=== PATIENT | male | born 1935 | race Caucasian/White ===

== ENCOUNTER 2017-01-02 16:12 | Inpatient (IN) ==
[2017-01-02] MEDS ORDERED: PANTOPRAZOLE 40 MG VIAL IV STA (16:50)
[2017-01-02] MEDS ORDERED: ONDANSETRON 4 MG/2 ML VIAL IV STA (16:50)
[2017-01-02] MEDS ORDERED: SODIUM CHLORIDE 0.9% 500 ML IV STA (16:50)
[2017-01-02 16:57] LABS: Basophils # 0.1 10*3/uL (0.0-0.2); Basophils % 0.4 % (0.0-0.8); Eosinophils # 0.4 10*3/uL (0.0-0.87); Hematocrit 23.8 VOL% (42.0-52.0); Hemoglobin 7.6 GM/DL (14.0-18.0); Immature Granulocytes % 0.9 %; Immature Granulocytes Absolute 0.12 #; Lymphocytes # 3.3 10*3/uL (1.4-4.0); Lymphocytes % 23.4 % (21.2-54.2); Mean Corpuscular HGB Conc 31.9 GM/DL (32-36); Mean Corpuscular Hemoglobin 27 PG (27-34); Mean Corpuscular Volume 85.3 FL (87-102); Mean Platelet Volume 10.3 FL (9.6-12.0); Monocytes # 1.2 10*3/uL (0.11-0.8); Monocytes % 8.7 % (1.7-12.7); Neutrophils # 8.8 10*3/uL (1.4-7.4); Neutrophils % 63.6 % (38.7-73.9); Platelet Count 200 T/CUMM (130-400); Red Blood Count 2.79 MC/CUMM (3.8-5.5); Red Cell Distribution Width 15.2 % (9.3-17.3); White Blood Count 13.9 T/CUMM (4-12)
[2017-01-02 17:01] LABS: INR 1.7; PT Patient Result 18.6 SECS
[2017-01-02] MEDS ORDERED: ONDANSETRON 4 MG/2 ML VIAL ONE (17:04)
[2017-01-02] MEDS ORDERED: PANTOPRAZOLE 40 MG VIAL IV ONE (17:04)
[2017-01-02 17:15] LABS: Alanine Aminotransferase 22 U/L (16-61); Albumin 3.5 G/DL (3.4-5.0); Alkaline Phosphatase 69 U/L (45-117); Aspartate Amino Transferase 33 U/L (0-37); Bilirubin,Total < 0.39 MG/DL (0.2-1.0); Blood Urea Nitrogen 55 MG/DL (7-18); Calcium 8.1 MG/DL (8.5-10.1); Glucose 114 MG/DL (74-106); Magnesium 2.3 MG/DL (1.8-2.4); Osmolality,Calculated 292.5 MOS/KG (273-304); Potassium 4.7 MMOL/L (3.5-5.1); Sodium 139 MMOL/L (136-145); Total Protein 6.6 G/DL (6.4-8.3); Troponin I Only < 0.015 NG/ML (0.00-0.045)
--- NOTE | 2017-01-02 17:24 | Emergency Department Note ---
Avelino Koroma Brittany, am scribing for, and in the presence of, rAt Gama MD 16:55. Lanette Koroma Charles R, MD, personally performed the services described in this documentation, ascribed by Josette You in my presence, and it is both accurate and complete 724 . Arrival - Arrival Chief Complaint: GI Bleed/Rectal Stated Complaint: blood count low/losing blood in stool ED Nursing Triage Note: Was told to come to ER per Dr Calero nurse - pt c/o black stools and low blood pressure - pt had labs and states that he was called back by nurse and told that his blood counts were low and that he needed to come to Er Mode of Arrival: Ambulatory Limitations: No Limitations Source: Patient, RN Notes Reviewed Time Seen by Provider: 01/02/17 16:33 - History of Present Illness HPI Narrative: Patient is a 81 y/o white male presenting to the ED for further evaluation of low hemoglobin of 8. Patient reports that he has been having some melena type stools for the past 3 days and became concerned. Due to this concern he called Dr. Calero's office and later was seen. He had his Coumadin levels checked, which were within normal limits, but nurses were alarmed with his drop in Hemoglobin from 12 to 8 and he was then instructed to present here to the ED. Patient reports some generalized weakness that is worsened upon exertion. He denies having any shortness of breath or abdominal pain. He states that he has never had this before. Patient does have a history of Heart Valve Replacement and Pacemaker Placement. He had a stent placed in July of 2016. Patient has no other complaint/pain. Onset (ago): day(s) (3) Consistency: constant Allergies/Adverse Reactions: Allergies Allergy/AdvReac Type Severity Reaction Status Date / Time No Known Allergies Allergy Verified 08/26/16 21:45 Home Medications: Home Medications Medication Instructions Recorded Confirmed Type Pravastatin [Pravachol] 20 mg PO DAILY 07/31/15 01/02/17 History Flecainide Acetate 100 mg PO BID 10/27/15 01/02/17 History Metoprolol Succinate Xl [Toprol Xl] 25 mg PO BEDTIME 10/27/15 01/02/17 History Multivitamin [Multivitamins] 1 each PO DAILY 10/27/15 01/02/17 History Warfarin [Coumadin] 5 mg PO BEDTIME 10/27/15 01/02/17 History Furosemide Tab [Lasix Tab] 20 mg PO DAILY 08/10/16 01/02/17 History Magnesium Oxide [Magnesium] 500 mg PO DAILY 08/10/16 01/02/17 History Lisinopril 5 mg PO DAILY 08/23/16 01/02/17 History Aspirin [Ecotrin] 81 mg PO DAILY #30 tablet.dr HANDLEY 08/24/16 01/02/17 Rx Clopidogrel [Plavix] 75 mg PO DAILY #30 tablet 08/24/16 01/02/17 Rx Pantoprazole Tab [Protonix Tab] 40 mg PO DAILY #30 tablet 08/24/16 01/02/17 Rx Review of System - Review of System 12 point system: reviewed and no additional remarkable complaints except as stated - Review of System Constitutional: Present: weakness. Absent: chills, fever Eyes: Absent: vision change Head/Ears/Nose/Throat: Absent: nasal drainage, sore throat Respiratory: Absent: respiratory distress Cardiovascular: Absent: chest pain Gastrointestinal: Present: melena. Absent: abdominal pain, nausea, vomiting, diarrhea, constipation Genitourinary male: Absent: urgency, dysuria, frequency Musculoskeletal: Absent: arm pain, back pain, leg pain, neck pain Skin: Absent: rash Neurological: Absent: headache Psychiatric: Absent: anxiety, depression Hematological/Lymphatic: Absent: easy bleeding, easy bruising Medical,Surgical,& Family Hx - Medical History Cardio: History of: Cardiac Dysrhythmia (a fib), Hypertension, [place], Pacemaker, Valvular Heart Disease (valve replace), Cardiovascular Problems Psychological: History of: Depression (loss of a grandson, situational) Neurology: History of: TIA Endocrine: No history of: Thyroid Disorder Rheumatology: History of;: Gout Respiratory: History of: Obstructive Sleep Apnea, Pneumonia Renal: History of: Renal Problems (renal insufficiency, mild) Genitourinary: No history of: Kidney Stones, Prostate Problems Gastrointestinal: History of: Polyps Musculoskeletal: History of: Back/Neck Problems, Musculoskeletal Problems ( ARTHRITIS) Hematology: History of: Anemia, Clotting Problems Other: No history of: Cancer - Surgical History Cardiac Surgeries: Sugical HX of: Cardiac Surgery (aortic valve replacement, pacemaker) HEENT Surgeries: Surgical HX of: Tonsilectomy & Adenoidectomy Abdominal Surgeries: Surgical HX of: Appendectomy, Colonoscopy, EGD Patient denies: Cholecystectomy Orthopedic Surgeries: Surgical HX of;: Orthopedic Surgery (KNEE) - Family History Family History: Reports;: Family Heart Disease (father), Family Hypertension ( mother, sister), Family Stroke (mother) - Social History Smoking Status: Never smoker Frequency of Alcohol Use: None Type of Drug Use: None Exam Vital Signs: Vital Signs Temperature 98.6 F 01/02/17 16:25 Pulse Rate 71 01/02/17 16:25 Respiratory Rate 20 01/02/17 16:25 Blood Pressure 150/51 01/02/17 16:25 O2 Sat by Pulse Oximetry 100 01/02/17 16:17 - General General appearance: alert, in no apparent distress - Head Head exam: Present: atraumatic, normocephalic, normal inspection - Eye Eye exam: Present: normal appearance, PERRL, EOMI - ENT ENT exam: Present: normal exam, normal oropharynx - Neck Neck exam: Present: normal inspection, full ROM, trachea midline - Chest Chest inspection: Present: normal inspection, symmetric chest wall rise - Respiratory Respiratory exam: Present: normal lung sounds bilaterally. Absent: rales, rhonchi, wheezes - Cardiovascular Cardiovascular exam: Present: regular rate, normal rhythm, clicks (mechanical valve click). Absent: normal heart sounds - Abdominal Exam Abdominal exam: Present: soft, normal bowel sounds. Absent: distention, tenderness - Rectal Exam Rectal exam: Present: heme (+) stool - Extremities Exam Extremities exam: Present: normal inspection - Back Exam Back exam: Present: normal inspection - Neurological Exam Neurological exam: Present: alert, oriented X3, CN II-XII intact. Absent: motor sensory deficit - Psychiatric Psychiatric exam: Present: normal affect, normal mood - Skin Skin exam: Present: warm, dry, intact, normal color Course - Consultations Consultation #1: Hospitalist will admit patient Time: 17:23 Results - Labs CBC & BMP: 01/02/17 16:34 01/02/17 16:34 Lab Results: I have reviewed the patients labs Labs: Laboratory Tests 01/02/17 01/02/17 16:34 16:34 WBC 13.9 H RBC 2.79 L Hgb 7.6 L Hct 23.8 L MCV 85.3 L MCH 27 MCHC 31.9 L RDW 15.2 Plt Count 200 MPV 10.3 Neut % (Auto) 63.6 Lymph % (Auto) 23.4 [place] % (Auto) 8.7 Eos % (Auto) 3.0 Baso % (Auto) 0.4 Neut # (Auto) 8.8 H Lymph # (Auto) 3.3 [place] # (Auto) 1.2 H Eos # (Auto) 0.4 Baso # (Auto) 0.1 Immature Gran % 0.9 Nucleated RBC % 0.0 Immature Gran # 0.12 Nucleated RBCs # 0.00 INR 1.7 PT Patient/Control Mix 18.6 D Critical Care Time Critical Care Time: Yes Total Critical Care Time: 30 Disposition Clinical Impression: Gastritis, Lower gastrointestinal hemorrhage, Melena, Valvular heart disease, Renal insufficiency, Acute blood loss anemia, Coronary artery disease, Anticoagulated on warfarin Case discussed with: patient, patient's family Condition: Guarded Time of Disposition: 17:24
--- NOTE | 2017-01-02 17:51 | XRay Report ---
Exam: XR chest 1V Date: 01/02/2017 4:51 PM Comparison: 08/26/2016 Indication: Shortness of breath Technique:[Single view chest] Findings: The heart is minimally enlarged with prior median sternotomy with stable left subclavian atrioventricular pacemaker. Chronic scarring in the lungs with stable mediastinum and osseous structures. Impression: No acute cardiopulmonary pathology identified. Status post median sternotomy with chronic scarring and stable left subclavian atrioventricular pacemaker. PROCEDURE INTERPRETED AT [facility] DEPARTMENT OF RADIOLOGY Final Report Signed by: Dr. Angie Holm
--- NOTE | 2017-01-02 17:53 | XRay Report ---
Exam: XR abdomen 2V Date: 01/02/2017 4:51 PM Comparison: None Indication: Generalized abdominal pain Technique:[Supine and erect abdomen] Findings: Mild gaseous distention of the bowel with increased fecal material in the colon. No free air is identified. Prior median sternotomy with atrioventricular permanent pacemaker. Degenerative changes are noted. Impression: Mild gaseous distention of the bowel especially in the left abdomen which could be related to mild ileus, enteritis, increased fecal material, etc. No free air is identified. Follow-up x-ray may be helpful for further evaluation if symptoms persist. Atrioventricular pacemaker with prior median sternotomy. PROCEDURE INTERPRETED AT [facility] DEPARTMENT OF RADIOLOGY Final Report Signed by: Dr. Angie Holm
--- NOTE | 2017-01-02 18:07 | Hospitalist History & Physical ---
Assessment and Plan (1) Lower gastrointestinal hemorrhage Status: Acute Assessment and plan: Admit to monitored bed. Transfuse 2 units of blood. Pt. will continue to remain on coumadin therapy. Check PT/INR in am. Consult GI& cards. Check H&H. IVF hydration Current Visit: Yes (2) Melena Status: Acute Assessment and plan: Consult GI. IVF hydration Current Visit: Yes (3) HTN (hypertension) Status: Chronic Assessment and plan: Pt's blood pressure is stable. Restart home meds as appropriate. Current Visit: No (4) History of aortic valve replacement Status: Chronic Assessment and plan: Maintain coumadin therapy. PT/INR in am Current Visit: No (5) Pacemaker Status: Chronic Current Visit: No (6) Leukocytosis Status: Acute Assessment and plan: CXR unremarkable. Obtain urinalysis monitor closely. Current Visit: Yes History of Present Illness Chief complaint: black stools History of present illness: Mr. Cuellar is a 81 year old white male with a history of pacemaker, heart valve replacement, TIA, CAD, afib, chronic renal insufficency, polyp removal 2-3 months ago, and pneumonia that was sent over to the ED today from his pin sticker's office. The nurses noted that his hemoglobin decreased from 12 to 8. 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 Pt denies any shortness of breath or abdominal pain and associated symptoms. The patient also takes coumadin. The patient will be admitted to the hospitalist service for further evaluation. Home Medications Medication Instructions Recorded Confirmed Type Pravastatin [Pravachol] 20 mg PO DAILY 07/31/15 01/02/17 History Flecainide Acetate 100 mg PO BID 10/27/15 01/02/17 History Metoprolol Succinate Xl [Toprol Xl] 25 mg PO BEDTIME 10/27/15 01/02/17 History Multivitamin [Multivitamins] 1 each PO DAILY 10/27/15 01/02/17 History Warfarin [Coumadin] 5 mg PO BEDTIME 10/27/15 01/02/17 History Furosemide Tab [Lasix Tab] 20 mg PO DAILY 08/10/16 01/02/17 History Magnesium Oxide [Magnesium] 500 mg PO DAILY 08/10/16 01/02/17 History Lisinopril 5 mg PO DAILY 08/23/16 01/02/17 History Aspirin [Ecotrin] 81 mg PO DAILY #30 tablet.dr HANDLEY 08/24/16 01/02/17 Rx Clopidogrel [Plavix] 75 mg PO DAILY #30 tablet 08/24/16 01/02/17 Rx Pantoprazole Tab [Protonix Tab] 40 mg PO DAILY #30 tablet 08/24/16 01/02/17 Rx Allergies Allergy/AdvReac Type Severity Reaction Status Date / Time No Known Allergies Allergy Verified 08/26/16 21:45 Medical,Surgical,& Family Hx - Medical History Cardio: History of: Cardiac Dysrhythmia (a fib), Hypertension, [place], Pacemaker, Valvular Heart Disease (valve replace), Cardiovascular Problems Psychological: History of: Depression (loss of a grandson, situational) Neurology: History of: TIA Endocrine: No history of: Thyroid Disorder Rheumatology: History of;: Gout Respiratory: History of: Obstructive Sleep Apnea, Pneumonia Renal: History of: Renal Problems (renal insufficiency, mild) Genitourinary: No history of: Kidney Stones, Prostate Problems Gastrointestinal: History of: Polyps Musculoskeletal: History of: Back/Neck Problems, Musculoskeletal Problems ( ARTHRITIS) Hematology: History of: Anemia, Clotting Problems Other: No history of: Cancer - Surgical History Cardiac Surgeries: Sugical HX of: Cardiac Surgery (aortic valve replacement, pacemaker) HEENT Surgeries: Surgical HX of: Tonsilectomy & Adenoidectomy Abdominal Surgeries: Surgical HX of: Appendectomy, Colonoscopy, EGD Patient denies: Cholecystectomy Orthopedic Surgeries: Surgical HX of;: Orthopedic Surgery (KNEE) - Family History Family History: Reports;: Family Heart Disease (father), Family Hypertension ( mother, sister), Family Stroke (mother) - Social History Smoking Status: Never smoker Frequency of Alcohol Use: None Type of Drug Use: None - Constitutional Constitutional: Absent: chills, fever(s) - EENT Eyes: Present: loss of vision, requires corrective lense Ears: Absent: decreased hearing, ear discharge - Cardiovascular Cardiovascular: Present: lightheadedness. Absent: dyspnea, edema - Respiratory Respiratory: Absent: cough, dyspnea - Gastrointestinal Gastrointestinal: Present: melena. Absent: constipation, nausea, vomiting - Genitourinary Genitourinary: Absent: difficulty urinating, urinary incontinence - Musculoskeletal Musculoskeletal: Absent: limited range of motion, muscle cramps - Neurological Neurological: Present: dizziness. Absent: confusion - Psychiatric Psychiatric: Absent: anxiety, confusion - Endocrine Endocrine: Present: fatigue - Hematologic/Lymphatic Hematologic/Lymphatic: Present: easy bleeding Exam - Constitutional Vitals: Period Temp Pulse Resp BP Sys/Bermudez Pulse Ox Last 24 Hr 98.6 F-98.6 F 71-71 20-20 150-150/51-51 100 General appearance: normal weight, no acute distress - Head Head exam: Present: normal inspection, normocephalic - Eye Eye exam: Present: EOMI. Absent: scleral icterus Pupils: Present: BERENICE - ENT ENT exam: Present: normal external ear exam - Neck Neck exam: Absent: thyromegaly - Respiratory Respiratory exam: Present: clear to auscultation bilaterally. Absent: wheezes - Cardiovascular Cardiovascular exam: Present: regular rate and rhythm. Absent: tachycardia - GI/Abdominal GI/Abdominal exam: Present: normal bowel sounds, soft. Absent: tenderness - Extremities Exam Extremities exam: Present: normal capillary refill, full ROM. Absent: edema - Neurological Exam Neurological exam: Present: alert, oriented X3 - Psychiatric Psychiatric exam: Present: normal affect, normal mood - Skin Skin exam: Present: normal color, warm, dry Results - Labs CBC & BMP: 01/02/17 16:34 01/02/17 16:34 Lab Results: I have reviewed the past 24 hour labs
[2017-01-02] MEDS ORDERED: ACETAMINOPHEN 325 MG TABLET PO PRN (19:04)
[2017-01-02] MEDS ORDERED: ONDANSETRON 4 MG/2 ML VIAL IV PRN (19:04)
[2017-01-02] MEDS ORDERED: SODIUM CHLORIDE 0.9% 250 ML IV PRN (19:04)
[2017-01-02] MEDS: SODIUM CHLORIDE 0.9% 1,000 ML IV SCH (19:43)
[2017-01-02] MEDS: WARFARIN 5 MG TABLET PO SCH (21:10)
[2017-01-02] MEDS: METOPROLOL SUCCINATE XL 25 MG TABLET PO SCH (21:10)
[2017-01-02] MEDS: FLECAINIDE 100 MG TABLET PO SCH (21:10)
[2017-01-03 00:56] LABS: Apearance,Urine CLEAR (Clear); Bilirubin,Urine Negative (Negative); Blood, Urine Negative (Negative); Glucose,Urine (UA) Negative (Negative); Ketones,Urine Negative (Negative); Nitrite,Urine Negative (Negative); Protein,Urine Negative; Urine Color Straw (Yellow); Urine Specific Gravity 1.012 (1.001-1.035); Urine Urobilinogen < 2.0 EU/DL (0.2-1.0)
[2017-01-03 05:33] LABS: Basophils # 0.1 10*3/uL (0.0-0.2); Basophils % 0.6 % (0.0-0.8); Eosinophils # 0.4 10*3/uL (0.0-0.87); Eosinophils % 4.1 % (0.00-10.9); Hemoglobin 7.9 GM/DL (14.0-18.0); Immature Granulocytes % 0.6 %; Immature Granulocytes Absolute 0.07 #; Lymphocytes # 2.6 10*3/uL (1.4-4.0); Lymphocytes % 23.7 % (21.2-54.2); Mean Corpuscular HGB Conc 31.6 GM/DL (32-36); Mean Corpuscular Hemoglobin 28 PG (27-34); Neutrophils # 6.7 10*3/uL (1.4-7.4); Platelet Count 146 T/CUMM (130-400); Red Blood Count 2.81 MC/CUMM (3.8-5.5); Red Cell Distribution Width 15.2 % (9.3-17.3); White Blood Count 10.8 T/CUMM (4-12)
[2017-01-03 05:41] LABS: INR 1.5
[2017-01-03 06:15] LABS: Calcium 7.8 MG/DL (8.5-10.1); Magnesium 2.3 MG/DL (1.8-2.4); Potassium 4.9 MMOL/L (3.5-5.1); Thyroid Stimulating Hormone 3.29 uIU/ml (0.358-3.74)
--- NOTE | 2017-01-03 07:50 | EKG Report ---
Stationary ECG Study [facility] Test Date: 01/02/2017 5:18:41 PM Pat Name: Naveed AUGUSTIN Department: Room: 532 Gender: M Director College: : 1935 Requested by: Art Box Order Number: [id number] Reading MD: GILSON GONZALEZ Intervals [place] Rate: 65 P: 268 [place]: 270 QRS: 1 QRSD: 122 T: 44 QT: 465 QTc: 477 Interpretive Statements SINUS RHYTHM WITH PROLONGED [place] INTERVAL MODERATE INTRAVENTRICULAR CONDUCTION DELAY Electronically Signed On 01-08-17 22:40:19 CDT by GILSON GONZALEZ [email or web address]
[2017-01-03] MEDS: PRAVASTATIN 20 MG TABLET PO SCH (08:28)
[2017-01-03] MEDS: FLECAINIDE 100 MG TABLET PO SCH ×2 (08:28→20:20)
[2017-01-03] MEDS: FUROSEMIDE 20 MG TABLET PO SCH (08:28)
[2017-01-03] MEDS: MULTIVITAMIN (CENTRUM) TABLET PO SCH (08:28)
[2017-01-03] MEDS: LISINOPRIL 5 MG TABLET PO SCH (08:28)
[2017-01-03] MEDS: PANTOPRAZOLE 40 MG TABLET PO SCH (08:28)
[2017-01-03] MEDS: MAGNESIUM OXIDE 400 MG TABLET PO SCH (08:28)
--- NOTE | 2017-01-03 08:52 | Gastrointestinal Consult Note ---
<SedaKathy Crystal - Last Filed: 01/03/17 09:25> Assessment and Plan (1) Melena Status: Acute Assessment and plan: 01/03-Three day history of dark tarry stools w/o other associated symptoms, on Plavix/Coumdin/Aspirin therapy. Hgb 7.6 on admission now 7.9 following 2 units of PRBC. To receive 2 more units today. Plan for tentative EGD tomorrow to further evaluate if okay from cardiac standpoint. Plan and addendum to follow by Dr Glass. Current Visit: Yes History of Present Illness Chief complaint: <Melena, anemia History of present illness: Mr. Cuellar is a 81 year old male who presented to the hospital with onset of melena and weakness. Pt states that he was in his usual state of health until Monday when he had an onset of dark tarry stools. He states that he did not see any bright red bleeding. Patient states that he had no other symptoms associated with this throughout the weekend other than some generalized weakness. He states he had multiple dark tarry stools however waited until yesterday to come in for evaluation after he presented to see Dr. Celis and was sent to the ER. Patient denies any nausea, vomiting, fever, chills, or recent weight loss. He denies any dysphagia, odynophagia, GERD symptoms. He denies any NSAID use. He denies any abdominal pain, increased in belching/bloating. He denies any history of PUD in the past. Pt takes Protonix daily. Pt also is noted to take Coumadin with a history of heart valve replacement as well as pacemaker placement. He also underwent stent placement in July 2016 in which Plavix and aspirin was started at that time. Patient denies any prior history of GI bleeding. His last colonoscopy was done in October of last year by Dr. Glass with only finding of a polyp (hyperplastic), diverticulosis and internal hemorrhoids. On admission INR is 81.5. BUN/creatinine ratio 28. Hemoglobin 7.6 on admission. He is received 2 units of packed red blood cells at this time and hemoglobin this morning noted to be 7.9. He is to receive 2 more units of packed red blood cells today. He is unable to call his last upper endoscopy however states it was many years ago and does not recall the findings of that at that time. No records noted in our facility database. Home Medications Medication Instructions Recorded Confirmed Type Pravastatin [Pravachol] 20 mg PO DAILY 07/31/15 01/02/17 History Flecainide Acetate 100 mg PO BID 10/27/15 01/02/17 History Metoprolol Succinate Xl [Toprol Xl] 25 mg PO BEDTIME 10/27/15 01/02/17 History Multivitamin [Multivitamins] 1 each PO DAILY 10/27/15 01/02/17 History Warfarin [Coumadin] 5 mg PO BEDTIME 10/27/15 01/02/17 History Furosemide Tab [Lasix Tab] 20 mg PO DAILY 08/10/16 01/02/17 History Magnesium Oxide [Magnesium] 500 mg PO DAILY 08/10/16 01/02/17 History Lisinopril 5 mg PO DAILY 08/23/16 01/02/17 History Aspirin [Ecotrin] 81 mg PO DAILY #30 tablet.dr HANDLEY 08/24/16 01/02/17 Rx Clopidogrel [Plavix] 75 mg PO DAILY #30 tablet 08/24/16 01/02/17 Rx Pantoprazole Tab [Protonix Tab] 40 mg PO DAILY #30 tablet 08/24/16 01/02/17 Rx Allergies Allergy/AdvReac Type Severity Reaction Status Date / Time No Known Allergies Allergy Verified 08/26/16 21:45 Medical,Surgical,& Family Hx - Medical History Cardio: History of: Cardiac Dysrhythmia (a fib), Hypertension, [place], Pacemaker, Valvular Heart Disease (valve replace), Cardiovascular Problems Psychological: History of: Depression (loss of a grandson, situational) No history of: Anxiety Disorders, ADHD, Behavior Problems, Bipolar Disorder, Previous Suicide Attempt, Psychiatric/Substance Abuse Tx, Schizophrenia, Violent Behavior, Psychiatric Problems Neurology: History of: TIA Endocrine: No history of: Thyroid Disorder Rheumatology: History of;: Gout Respiratory: History of: Obstructive Sleep Apnea, Pneumonia Renal: History of: Renal Problems (renal insufficiency, mild) Genitourinary: No history of: Kidney Stones, Prostate Problems Gastrointestinal: History of: Polyps Musculoskeletal: History of: Back/Neck Problems, Musculoskeletal Problems ( ARTHRITIS) Hematology: History of: Anemia, Clotting Problems Other: No history of: Cancer - Surgical History Cardiac Surgeries: Sugical HX of: Cardiac Surgery (aortic valve replacement, pacemaker) Thoracic Surgeries: Patient denies;: Lobectomy Neurologic Surgeries: Patient denies: Neurologic Surgery HEENT Surgeries: Surgical HX of: Tonsilectomy & Adenoidectomy Abdominal Surgeries: Surgical HX of: Appendectomy, Colonoscopy, EGD Patient denies: Cholecystectomy Orthopedic Surgeries: Surgical HX of;: Orthopedic Surgery (KNEE) - Family History Family History: Reports;: Family Heart Disease (father), Family Hypertension ( mother, sister), Family Stroke (mother) - Social History Smoking Status: Never smoker Frequency of Alcohol Use: Occasionally Type of Drug Use: None 12 point system: reviewed and no additional remarkable complaints except as stated - Constitutional Constitutional: Present: as per HPI - EENT Eyes: Present: as per HPI Ears: Present: as per HPI Nose, mouth and throat: Present: as per HPI - Cardiovascular Cardiovascular: Present: as per HPI - Respiratory Respiratory: Present: as per HPI - Gastrointestinal Gastrointestinal: Present: as per HPI, melena - Genitourinary Genitourinary: Present: as per HPI - Musculoskeletal Musculoskeletal: Present: as per HPI - Neurological Neurological: Present: as per HPI - Psychiatric Psychiatric: Present: as per HPI - Endocrine Endocrine: Present: as per HPI - Hematologic/Lymphatic Hematologic/Lymphatic: Present: as per HPI Exam - Constitutional Vitals: Period Temp Pulse Resp BP Sys/Bermudez Pulse Ox Last 24 Hr 97.9 F-99.1 F 60-71 18-20 105-140/42-60 95-100 General appearance: normal weight, no acute distress - Head Head exam: Present: normal inspection, normocephalic - Eye Eye exam: Present: other (Lids and conjunctivae unremarkable). Absent: scleral icterus - ENT ENT exam: Present: normal exam, normal oropharynx - Neck Neck exam: Present: normal inspection - Respiratory Respiratory exam: Present: clear to auscultation bilaterally. Absent: rales, rhonchi, wheezes - Cardiovascular Cardiovascular exam: Present: regular rate and rhythm. Absent: diastolic murmur , JVD, systolic murmur - GI/Abdominal GI/Abdominal exam: Present: normal bowel sounds, soft. Absent: ascites, distended, mass, organomegaly, tenderness - Extremities Exam Extremities exam: Present: normal inspection, full ROM - Back Exam Back exam: Present: normal inspection - Neurological Exam Neurological exam: Present: alert, oriented X3 - Psychiatric Psychiatric exam: Present: normal affect, normal mood - Skin Skin exam: Present: normal color, warm, dry Results - Labs CBC & BMP: 01/03/17 04:59 01/03/17 04:59 Lab Results: I have reviewed the past 24 hour labs <Shiraz Glass - Last Filed: 01/03/17 13:46> History of Present Illness History of present illness: Mr. Cuellar is a 81 year old male Exam - Constitutional Vitals: Period Temp Pulse Resp BP Sys/Bermudez Pulse Ox Last 24 Hr 97.8 F-99.1 F 59-71 18-20 105-140/42-60 95-100 Results - Labs CBC & BMP: 01/03/17 04:59 01/03/17 04:59
[2017-01-03] MEDS ORDERED: ASPIRIN EC 81 MG TABLET PO SCH (09:00)
[2017-01-03] MEDS ORDERED: CLOPIDOGREL 75 MG TABLET PO SCH (09:00)
[2017-01-03] MEDS ORDERED: PANTOPRAZOLE 40 MG TABLET PO SCH (09:00)
--- NOTE | 2017-01-03 15:19 | Cardiology Consult Note ---
Alphonso Koroma Vanessa, RN, am scribing for, and in the presence of, Ajit Tierney MD 15:14. Assessment and Plan - Time spent with patient Time spent with patient: Greater than 30 minutes (due to assessment, planning, documentation, medication review) (1) History of coronary artery stent placement Status: Acute Assessment and plan: INITIAL CONSULT JANUARY 03, 2017: ASSESSMENT/PLAN: 1. 81-year-old WN with multiple medical problems including remote mechanical AVR in 1990, remote pacemaker placement, known CAD status post stenting of ostial OM 30 July 2016 with resolution of angina, now noted to have significant anemia with mild dizziness and melena for several days on presentation despite slightly subtherapeutic INR. 2. Remote history of TIA "over 5 years ago" 3. It is reasonable to hold aspirin and Plavix until endoscopy in the morning to assess the severity and location of his source for GI bleeding; he continued to have a bit of melena today. 4. Paroxysmal atrial fibrillation status post cardioversion July 2016, maintain normal sinus rhythm with first-degree A-V B and slight prolongation of QTC on flecainide 5. Aortic valve second sound is quite crisp suggesting that there is no thrombosis; physical exam is reasonably benign other than decreased breath sounds in the right base, and minimal lower extremity edema. 6. Check morning labs including INR EKG 7. He feels a bit better and is currently receiving his second unit of packed red blood cells this afternoon. 8. We will follow with you Current Visit: Yes (2) Melena Status: Acute Current Visit: Yes (3) Acute blood loss anemia Status: Acute Current Visit: Yes (4) Chronic anticoagulation Status: Chronic Current Visit: Yes (5) Hx of mechanical aortic valve replacement Status: Chronic Current Visit: Yes (6) Paroxysmal atrial fibrillation Status: Chronic Current Visit: Yes (7) Coronary artery disease Status: Chronic Current Visit: Yes Qualifiers: Coronary Disease-Associated Artery/Lesion type: torres martinez artery [place] vs. transplanted heart: torres martinez heart Associated angina: without angina Qualified Code(s): I25.10 - Atherosclerotic heart disease of torres martinez coronary artery without angina pectoris (8) Dyslipidemia Status: Chronic Current Visit: No (9) HTN (hypertension) Status: Chronic Current Visit: No History of Present Illness - Data of Consult Patient: known to practice within the last 3 years Consult date: 01/03/17 Requesting Physician: Avel Lima - Consult Narrative Reason for consult: GI bleed, hx of AVR with chronic anticoagulation, DAPT History of present illness: PRIMARY PAROLE OFFICER: DR. 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 Bryant Seo for many years, and he has recently established care with Dr. Ara Xiong. Risk factors significant for: Known CAD, hypertension, dyslipidemia, and obesity. Past medical history includes TIA, paroxysmal atrial fibrillation , aortic valve replacement, diastolic CHF, chronic renal insufficiency, and permanent dual-chamber pacemaker, and anemia. Patient was seen at [facility] yesterday for routine PT/INR check. Blood work revealed a significantly decreased H/H to 8.3 and 25.8 with INR 1.7, and he admitted to melena since last Monday. Patient was admitted by hospital medicine for treatment of GI bleeding. Since hospital admission, he has been transfused with 2 units PRBCs. Cardiology has been consulted for further evaluation as he is chronically anticoagulated s/p mechanical aortic valve, and he is currently on dual antiplatelet therapy after coronary stenting of ostium of 3rd obtuse marginal branch in July 2016. Echocardiogram during July 2016 admission revealed LV ejection fraction 55% and mild TR with a PA pressure 54 mmHg. Patient seen and examined. 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 Denies any recent or current chest pain or tightness or dyspnea at rest or with exertion. Denies recent or current orthopnea, PND, palpitations, or presyncope. He reports he has been having dark, tarry stools which he first noticed Monday morning, but he denies any bright red bleeding or abdominal pain. Admits to some intermittent mild dizziness throughout the day on Monday. Skin is warm and dry. Denies recent cough, fever, chills. Patient did have atrial fibrillation with RVR in July 2016, and he was successfully cardioverted per Dr. Alvarez at that time. He denies neither recent or current weakness nor tachycardia associated with RVR. He has continued to take his flecainide. Patient took his Coumadin yesterday evening, but he did not take his Plavix or aspirin this morning. He has been evaluated by gastroenterology, and he is tentatively planned for EGD tomorrow. EKG and cardiac monitoring reveals a sinus rhythm with prolonged LA and QT interval, pulse rate 60s without ectopy or arrhythmia. Blood pressure has been controlled. Posttransfusion H&H 7.9 and 25.0. INR this morning 1.5. Creatinine today 1.7 with GFR of 45. Troponin is negative. CC: Jennifer Rudd MD - Home Medications and Allergies Home Medications: Home Medications Medication Instructions Recorded Confirmed Type Pravastatin [Pravachol] 20 mg PO DAILY 07/31/15 01/02/17 History Flecainide Acetate 100 mg PO BID 10/27/15 01/02/17 History Metoprolol Succinate Xl [Toprol Xl] 25 mg PO BEDTIME 10/27/15 01/02/17 History Multivitamin [Multivitamins] 1 each PO DAILY 10/27/15 01/02/17 History Warfarin [Coumadin] 5 mg PO BEDTIME 10/27/15 01/02/17 History Furosemide Tab [Lasix Tab] 20 mg PO DAILY 08/10/16 01/02/17 History Magnesium Oxide [Magnesium] 500 mg PO DAILY 08/10/16 01/02/17 History Lisinopril 5 mg PO DAILY 08/23/16 01/02/17 History Aspirin [Ecotrin] 81 mg PO DAILY #30 tablet.[address] HANDLEY 08/24/16 01/02/17 Rx Clopidogrel [Plavix] 75 mg PO DAILY #30 tablet 08/24/16 01/02/17 Rx Pantoprazole Tab [Protonix Tab] 40 mg PO DAILY #30 tablet 08/24/16 01/02/17 Rx Allergies/Adverse Reactions: Allergies Allergy/AdvReac Type Severity Reaction Status Date / Time No Known Allergies Allergy Verified 08/26/16 21:45 - Constitutional Constitutional: Present: as per HPI - EENT Eyes: Present: as per HPI Nose, mouth and throat: Present: as per HPI - Cardiovascular Cardiovascular: Present: as per HPI - Respiratory Respiratory: Present: as per HPI - Gastrointestinal Gastrointestinal: Present: as per HPI - Genitourinary Genitourinary: Present: as per HPI - Musculoskeletal Musculoskeletal: Present: as per HPI - Neurological Neurological: Present: as per HPI - Psychiatric Psychiatric: Present: as per HPI - Endocrine Endocrine: Present: as per HPI - Hematologic/Lymphatic Hematologic/Lymphatic: Present: as per HPI Medical,Surgical,& Family Hx - Medical History Cardio: History of: Cardiac Dysrhythmia (Paroxysmal atrial fibrillator), CHF ( Diastolic heart failure), Hypertension, [place], Pacemaker (Dual-chamber pacemaker per Dr. Bryan in 2014), Valvular Heart Disease (Status post mechanical aortic valve replaced), Cardiovascular Problems Psychological: History of: Depression (loss of a grandson, situational) No history of: Anxiety Disorders, ADHD, Behavior Problems, Bipolar Disorder, Previous Suicide Attempt, Psychiatric/Substance Abuse Tx, Schizophrenia, Violent Behavior, Psychiatric Problems Neurology: History of: TIA No history of: Cerebrovascular Accident, Dementia Endocrine: History of: Dyslipidemia No history of: Diabetes Mellitus (IDDM), Diabetes Mellitus (NIDDM), Thyroid Disorder Rheumatology: History of;: Gout Respiratory: History of: Obstructive Sleep Apnea, Pneumonia No history of: COPD Renal: History of: Renal Problems (Chronic renal insufficiency) Genitourinary: No history of: Kidney Stones, Prostate Problems Gastrointestinal: History of: GERD, Polyps No history of: Gastrointestinal Bleed Musculoskeletal: History of: Back/Neck Problems, Musculoskeletal Problems ( ARTHRITIS) Hematology: History of: Anemia, Clotting Problems No history of: Blood Transfusion Reaction Other: No history of: Cancer - Surgical History Cardiac Surgeries: Sugical HX of: Cardiac Catheterization (PCI of third obtuse marginal branch with MIRYAM in July 2016), Cardiac Surgery Patient Denies: Internal Defibrillator Thoracic Surgeries: Patient denies;: Lobectomy Neurologic Surgeries: Patient denies: Neurologic Surgery HEENT Surgeries: Surgical HX of: Tonsilectomy & Adenoidectomy Abdominal Surgeries: Surgical HX of: Appendectomy, Colonoscopy, EGD Patient denies: Cholecystectomy Orthopedic Surgeries: Surgical HX of;: Orthopedic Surgery (KNEE) - Family History Family History: Reports;: Family Heart Disease (father), Family Hypertension ( mother, sister), Family Stroke (mother) - Social History Smoking Status: Never smoker Frequency of Alcohol Use: Occasionally Type of Drug Use: None Physical Examination Vital Signs Temp Pulse Resp BP Pulse Ox 98.6 F 71 20 150/51 100 01/02/17 16:17 01/02/17 16:17 01/02/17 16:17 01/02/17 16:17 01/02/17 16:17 General: Present: Appears Well, No Apparent Distress HEENT: Present: Normocephaly, Mucus Membranes Moist. Absent: Pallor Neck: Present: Supple Neck, Midline Trachea, No JVD/HJR, No Masses, No Bruit, No Lymphadenopathy Cardiac: Present: Reg Rate and Rhythm, S1/S2, No Murmur, Other (Mechanical valve click). Absent: Tachycardia, Bradycardia Lungs: Present: Normal Exam, Clear Ascult./Percussion, No Wheeze, Rales, Rhonchi Neuro: Present: Grossly Intact. Absent: Numbness, Weakness, Resting Tremor, Essential Tremor Abdomen: Present: Soft, Active Bowel Sounds, No Masses, No Pulsations/Bruits. Absent: Tender, Firm, Distended Skin: Present: Clear. Absent: Rash, Suspicious Lesions Musculoskeletal: Present: No Fluid Collection, No Pain, Normal Range of Motion Gait: Present: Normal Gait Extremities: Present: No Clubbing, No Cyanosis, Normal Upper Extr. Pulses, Normal Lower Extr. Pulses, No Phlebitic Signs, Normal Cath Site, Capillary Refill (Normal). Absent: Edema Result/EKG - Labs CBC & BMP: 01/03/17 04:59 01/03/17 04:59 Lab Results: I have reviewed the past 24 hour labs Labs: Laboratory Results - last 24 hr 01/02/17 01/03/17 01/03/17 19:18 00:00 04:59 WBC 10.8 RBC 2.81 L Hgb 7.9 L Hct 25.0 L MCV 89.0 MCH 28 MCHC 31.6 L RDW 15.2 Plt Count 146 D MPV 10.0 Neut % (Auto) 62.0 Lymph % (Auto) 23.7 Gates % (Auto) 9.0 Eos % (Auto) 4.1 Baso % (Auto) 0.6 Neut # (Auto) 6.7 Lymph # (Auto) 2.6 Gates # (Auto) 1.0 H Eos # (Auto) 0.4 Baso # (Auto) 0.1 Immature Gran % 0.6 Nucleated RBC % 0.0 Immature Gran # 0.07 Nucleated RBCs # 0.00 INR PT Patient/Control Mix Sodium Potassium Chloride Carbon Dioxide Anion Gap BUN Creatinine GFR Calculation BUN/Creatinine Ratio Glucose Calculated Osmolality Calcium Magnesium Free T4 TSH 3rd Generation Urine Color Straw Urine Appearance Clear Urine pH 5.0 Ur Specific [place] 1.012 Urine Protein Negative Urine Glucose (UA) Negative Urine Ketones Negative Urine Blood Negative Urine Nitrate Negative Urine Bilirubin Negative Urine Urobilinogen < 2.0 H Urine Leukocytes Negative Ur Culture Indicated? Not indicated Micro UA Comment Blood Type O POSITIVE Antibody Screen Crossmatch Blood Bank Comment 01/03/17 01/03/17 01/03/17 04:59 04:59 04:59 WBC RBC Hgb Hct MCV MCH MCHC RDW Plt Count MPV Neut % (Auto) Lymph % (Auto) [place] % (Auto) Eos % (Auto) Baso % (Auto) Neut # (Auto) Lymph # (Auto) [place] # (Auto) Eos # (Auto) Baso # (Auto) Immature Gran % Nucleated RBC % Immature Gran # Nucleated RBCs # INR 1.5 PT Patient/Control Mix 16.0 Sodium 143 Potassium 4.9 Chloride 109 H Carbon Dioxide 28 Anion Gap 10.9 BUN 49 H Creatinine 1.70 H GFR Calculation 45 BUN/Creatinine Ratio 28.00 H Glucose 110 H Calculated Osmolality 298.0 Calcium 7.8 L Magnesium 2.3 Free T4 0.91 TSH 3rd Generation 3.290 Urine Color Urine Appearance Urine pH Ur Specific [place] Urine Protein Urine Glucose (UA) Urine Ketones Urine Blood Urine Nitrate Urine Bilirubin Urine Urobilinogen Urine Leukocytes Ur Culture Indicated? Micro UA Comment Blood Type Antibody Screen Crossmatch Blood Bank Comment 01/03/17 04:59 WBC RBC Hgb Hct MCV MCH MCHC RDW Plt Count MPV Neut % (Auto) Lymph % (Auto) [place] % (Auto) Eos % (Auto) Baso % (Auto) Neut # (Auto) Lymph # (Auto) [place] # (Auto) Eos # (Auto) Baso # (Auto) Immature Gran % Nucleated RBC % Immature Gran # Nucleated RBCs # INR PT Patient/Control Mix Sodium Potassium Chloride Carbon Dioxide Anion Gap BUN Creatinine GFR Calculation BUN/Creatinine Ratio Glucose Calculated Osmolality Calcium Magnesium Free T4 TSH 3rd Generation Urine Color Urine Appearance Urine pH Ur Specific [place] Urine Protein Urine Glucose (UA) Urine Ketones Urine Blood Urine Nitrate Urine Bilirubin Urine Urobilinogen Urine Leukocytes Ur Culture Indicated? Micro UA Comment Blood Type Cancelled Antibody Screen Cancelled Crossmatch See Detail Blood Bank Comment Cancelled - EKG EKG results: interpreted by me, no acute changes EKG shows: sinus rhythm Kelsy Koroma Randall Scott, MD, personally performed the services described in this documentation, ascribed by Xochilt Werner RN in my presence, and it is both accurate and complete .
--- NOTE | 2017-01-03 17:22 | Hospitalist Progress Note ---
Assessment and Plan (1) Lower gastrointestinal hemorrhage Status: Acute Assessment and plan: patient is on Coumadin due to an aortic valve in place.GI wants to scope in am. Continue prn transfusion Current Visit: Yes (2) History of aortic valve replacement Status: Chronic Assessment and plan: Follow Cardiology's recommendations Current Visit: No (3) HTN (hypertension) Status: Chronic Assessment and plan: stable Current Visit: No (4) Paroxysmal atrial fibrillation Status: Chronic Assessment and plan: rate is controlled Current Visit: Yes (5) Chronic renal insufficiency, stage III (moderate) Status: Chronic Assessment and plan: stable Current Visit: No Hospitalist: Subjective Interval history: Patient was seen receiving blood. He feels better Exam - Constitutional Vitals: Period Temp Pulse Resp BP Sys/Bermudez Pulse Ox Last 24 Hr 97.8 F-99.1 F 59-71 17-20 94-140/42-60 95-100 General appearance: no acute distress - Head Head exam: Present: normal inspection - Respiratory Respiratory exam: Present: clear to auscultation bilaterally - Cardiovascular Cardiovascular exam: Present: regular rate and rhythm - GI/Abdominal GI/Abdominal exam: Present: normal bowel sounds - Extremities Exam Extremities exam: Present: normal inspection Results - Labs CBC & BMP: 01/03/17 04:59 01/03/17 04:59 Lab Results: I have reviewed the past 24 hour labs
[2017-01-03] MEDS: SODIUM CHLORIDE 0.9% 1,000 ML IV SCH ×2 (19:32→20:21)
[2017-01-03] MEDS: METOPROLOL SUCCINATE XL 25 MG TABLET PO SCH (20:20)
[2017-01-03] MEDS: WARFARIN 5 MG TABLET PO SCH (20:20)
[2017-01-04 07:23] LABS: Basophils # 0.1 10*3/uL (0.0-0.2); Basophils % 0.7 % (0.0-0.8); Eosinophils # 0.6 10*3/uL (0.0-0.87); Eosinophils % 5.3 % (0.00-10.9); Hematocrit 29.7 VOL% (42.0-52.0); Immature Granulocytes % 1.2 %; Immature Granulocytes Absolute 0.13 #; Lymphocytes # 2.1 10*3/uL (1.4-4.0); Lymphocytes % 19.1 % (21.2-54.2); Mean Corpuscular HGB Conc 33.7 GM/DL (32-36); Mean Corpuscular Hemoglobin 30 PG (27-34); Mean Corpuscular Volume 87.6 FL (87-102); Mean Platelet Volume 10.2 FL (9.6-12.0); Monocytes % 8.7 % (1.7-12.7); Neutrophils # 7.1 10*3/uL (1.4-7.4); Platelet Count 148 T/CUMM (130-400); White Blood Count 10.9 T/CUMM (4-12)
[2017-01-04 07:24] LABS: INR 1.4; PT Patient Result 15.1 SECS
[2017-01-04 07:26] LABS: Red Blood Count 3.39 MC/CUMM (3.8-5.5)
[2017-01-04 07:51] LABS: Calcium 7.7 MG/DL (8.5-10.1); Osmolality,Calculated 290.1 MOS/KG (273-304)
[2017-01-04] MEDS: SODIUM CHLORIDE 0.9% 1,000 ML IV SCH (10:09)
--- NOTE | 2017-01-04 12:24 | Hospitalist Progress Note ---
Assessment and Plan (1) Lower gastrointestinal hemorrhage Status: Acute Assessment and plan: patient is on Coumadin due to an aortic valve in place.He is getting an EGD today. Continue prn transfusion Current Visit: Yes (2) History of aortic valve replacement Status: Chronic Assessment and plan: Follow Cardiology's recommendations. Patient remains on anticoagulation Current Visit: No (3) HTN (hypertension) Status: Chronic Assessment and plan: stable Current Visit: No (4) Paroxysmal atrial fibrillation Status: Chronic Assessment and plan: rate is controlled Current Visit: Yes (5) Chronic renal insufficiency, stage III (moderate) Status: Chronic Assessment and plan: stable Current Visit: No Hospitalist: Subjective Interval history: Patient had an episode of bloody stool last night. He has been transfused with 2units of packed cells and his lastest H/H -10.0/29.7. He was sitting up on a chair stating he feels good. Exam - Constitutional Vitals: Period Temp Pulse Resp BP Sys/Bermudez Pulse Ox Last 24 Hr 97.7 F-98.7 F 59-63 17-20 94-142/44-62 98-100 General appearance: no acute distress - Head Head exam: Present: normal inspection - Neck Neck exam: Present: normal inspection - Respiratory Respiratory exam: Present: clear to auscultation bilaterally - Cardiovascular Cardiovascular exam: Present: other (mechanical click) - GI/Abdominal GI/Abdominal exam: Present: normal bowel sounds - Extremities Exam Extremities exam: Present: normal inspection Results - Labs CBC & BMP: 01/04/17 06:47 01/04/17 06:47 Lab Results: I have reviewed the past 24 hour labs
--- NOTE | 2017-01-04 12:43 | History and Physical Update ---
History and Physical Update - History and Physical H&P was reviewed, the patient examined and there: are no changes in the patients condition since last H&P was completed. - Physical Exam Mental Status: alert and oriented Heart: regular rate and rhythm Lung: clear to auscultation Abdomen: within normal limits Vitals: within normal limits
--- NOTE | 2017-01-04 12:44 | Operative Note ---
Date of procedure: 01/04/17 Pre-op diagnosis: GI bleed with melena Procedure: Procedure: Esophagogastroduodenoscopy Brief clinical abstract: Patient is an 81-year-old male on Plavix and Coumadin with history of coronary artery disease and prosthetic aortic valve. He is admitted with recent melena and onset of weakness. He has required transfusion of 4 units packed red blood cells. Indication for procedure: GI bleed with melena Endoscopic findings:[After informed consent was obtained, the patient was placed in the left lateral decubitus position. The gastroscope was inserted in the upper esophagus under direct vision with no resistance encountered. Esophageal mucosa appeared normal down to the squamocolumnar junction. There was a mildly obstructive fibrous appearing stricture with no erosions or ulcerations. The endoscope was advanced in the stomach which was carefully examined including retroflexed view of the cardia and fundus with no other abnormality seen. The pyloric channel, duodenal bulb, second and third portion of the duodenum were normal. The endoscope was withdrawn and patient appeared to tolerate the procedure well. 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 Note that he had colonoscopy within the last 6 months or so. Anesthesia: MAC Surgeon / Physician: Shiraz Glass Estimated blood loss: none Specimens: none sent Condition: stable Disposition: post procedure unit Results - Labs CBC & BMP: 01/04/17 06:47 01/04/17 06:47 Discharge Plan - Discharge Medications No Action Pravastatin [Pravachol] 20 mg PO DAILY Warfarin [Coumadin] 5 mg PO BEDTIME Metoprolol Succinate Xl [Toprol Xl] 25 mg PO BEDTIME Multivitamin [Multivitamins] 1 each PO DAILY Flecainide Acetate 100 mg PO BID Lisinopril 5 mg PO DAILY Furosemide Tab [Lasix Tab] 20 mg PO DAILY Magnesium Oxide [Magnesium] 500 mg PO DAILY Aspirin [Ecotrin] 81 mg PO DAILY #30 tablet.dr HANDLEY Clopidogrel [Plavix] 75 mg PO DAILY #30 tablet Pantoprazole Tab [Protonix Tab] 40 mg PO DAILY #30 tablet - Follow Up or Referral - Forms/Instructions
--- NOTE | 2017-01-04 12:58 | Anesthesia Post-Op ---
Anesthesia Post OP - Post Ansesthetic Evaluation Patient seen in post op: Yes Resp: within normal limits CV: within normal limits Mental: within normal limits Temp: within normal limits Ctcp-Fy-Deanuutra: within normal limits Nausea and Vomiting: within normal limits Pain: within normal limits
[2017-01-04] MEDS: MAGNESIUM OXIDE 400 MG TABLET PO SCH (15:32)
[2017-01-04] MEDS: PANTOPRAZOLE 40 MG TABLET PO SCH (15:32)
[2017-01-04] MEDS: MULTIVITAMIN (CENTRUM) TABLET PO SCH (15:32)
[2017-01-04] MEDS: FUROSEMIDE 20 MG TABLET PO SCH (15:32)
[2017-01-04] MEDS: LISINOPRIL 5 MG TABLET PO SCH (15:32)
[2017-01-04] MEDS: PRAVASTATIN 20 MG TABLET PO SCH (15:32)
[2017-01-04] MEDS: FLECAINIDE 100 MG TABLET PO SCH ×2 (16:07→22:43)
[2017-01-04] MEDS ORDERED: WARFARIN 4 MG TABLET PO ONE (16:28)
--- NOTE | 2017-01-04 16:33 | Cardiology Progress Note ---
Alphonso Koroma Vanessa, RN, am scribing for, and in the presence of, Ajit Tierney MD 16:33. Assessment and Plan - Time spent with patient Time spent with patient: Greater than 30 minutes (1) History of coronary artery stent placement Status: Acute Assessment and plan: INITIAL CONSULT JANUARY 03, 2017: ASSESSMENT/PLAN: 1. 81-year-old WN with multiple medical problems including remote mechanical AVR in 1990, remote pacemaker placement, known CAD status post stenting of ostial OM 30 July 2016 with resolution of angina, now noted to have significant anemia with mild dizziness and melena for several days on presentation despite slightly subtherapeutic INR. 2. Remote history of TIA "over 5 years ago" 3. It is reasonable to hold aspirin and Plavix until endoscopy in the morning to assess the severity and location of his source for GI bleeding; he continued to have a bit of melena today. 4. Paroxysmal atrial fibrillation status post cardioversion July 2016, maintain normal sinus rhythm with first-degree A-V B and slight prolongation of QTC on flecainide 5. Aortic valve second sound is quite crisp suggesting that there is no thrombosis; physical exam is reasonably benign other than decreased breath sounds in the right base, and minimal lower extremity edema. 6. Check morning labs including INR EKG 7. He feels a bit better and is currently receiving his second unit of packed red blood cells this afternoon. 8. We will follow with you JANUARY 04, 2017 UPDATE: ASSESSMENT/PLAN: 1. Mr. Cuellar is doing better clinically but still having a little bit of melena status post upper endoscopy this morning which apparently showed stricture but no bleeding source 2. Subtherapeutic INR 1.4 despite getting 5 mg per evening; he reports his most recent prescription was for 7.5 on Monday and Monday with 5 mg other days. We will give an additional 4 mg today and then 5 g per night and nightly after that 3. Follow-up INR in the morning 4. Hold aspirin and Plavix given his upper GI bleed; his stent was placed nearly 5 months ago, so it would be reasonable hold this for some time until severity and location of GI bleeding can be established. 5. GI workup in progress 6. Aortic valve has a crisp sound today, and is doing fairly well clinically. 7. History of paroxysmal atrial flutter fibrillation; atrial paced rhythm most recently status post blood transfusion yesterday 8. We will continue to follow with you Current Visit: Yes (2) Melena Status: Acute Current Visit: Yes (3) Acute blood loss anemia Status: Acute Current Visit: Yes (4) Chronic anticoagulation Status: Chronic Current Visit: Yes (5) Hx of mechanical aortic valve replacement Status: Chronic Current Visit: Yes (6) Paroxysmal atrial fibrillation Status: Chronic Current Visit: Yes (7) Coronary artery disease Status: Chronic Current Visit: Yes Qualifiers: Coronary Disease-Associated Artery/Lesion type: [place] artery [place] vs. transplanted heart: [place] heart Associated angina: without angina Qualified Code(s): I25.10 - Atherosclerotic heart disease of [place] coronary artery without angina pectoris (8) Dyslipidemia Status: Chronic Current Visit: No (9) HTN (hypertension) Status: Chronic Current Visit: No Cardiology - PN: Subj Interval history: PRIMARY BILLING AUDITOR: DR. 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 Bryant Seo for many years, and he has recently established care with Dr. Ara Xiong. Risk factors significant for: Known CAD, hypertension, dyslipidemia, and obesity. Past medical history includes TIA, paroxysmal atrial fibrillation , aortic valve replacement, diastolic CHF, chronic renal insufficiency, and permanent dual-chamber pacemaker, and anemia. Patient was seen at [facility] yesterday for routine PT/INR check. Blood work revealed a significantly decreased H/H to 8.3 and 25.8 with INR 1.7, and he admitted to [facility] since last Monday. Patient was admitted by hospital medicine for treatment of GI bleeding. Since hospital admission, he has been transfused with a total of 4 units PRBCs. Cardiology has been consulted for further evaluation as he is chronically anticoagulated s/p mechanical aortic valve, and he is currently on dual antiplatelet therapy after coronary stenting of ostium of 3rd obtuse marginal branch in July 2016. Echocardiogram during July 2016 admission revealed LV ejection fraction 55% and mild TR with a PA pressure 54 mmHg. December: Dr. 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 He is awake and alert and is sitting up in bedside chair this morning. There have been no acute changes or new findings in hemodynamic status. He denies chest pain, shortness of breath, dizziness, weakness, or other complaint this morning. He reports that he feels better today. H&H has improved to 10.0 and 29.7 after a total of 4 units packed red blood cells transfused. Patient is scheduled for EGD today per Dr. Glass. Paced rhythm at 60 per ekg monitor. Systolic BP 110-140 mmHg. Exam (Progress Note) - Constitutional Vitals: Period Temp Pulse Resp BP Sys/Bermudez Pulse Ox Last 24 Hr 97.7 F-98.9 F 59-66 17-20 94-142/44-62 98-100 Exam: General: Present: Appears Well, No Apparent Distress HEENT: Present: Normocephaly, Mucus Membranes Moist. Absent: Pallor Neck: Present: Supple Neck, Midline Trachea, No JVD/HJR, No Masses, No Bruit, No Lymphadenopathy Cardiac: Present: Reg Rate and Rhythm, S1/S2, No Murmur, Other (Mechanical valve click). Absent: Tachycardia, Bradycardia Lungs: Present: Normal Exam, Clear Ascult./Percussion, No Wheeze, Rales, Rhonchi Neuro: Present: Grossly Intact. Absent: Numbness, Weakness, Resting Tremor, Essential Tremor Abdomen: Present: Soft, Active Bowel Sounds, No Masses, No Pulsations/Bruits. Absent: Tender, Firm, Distended Skin: Present: Clear. Absent: Rash, Suspicious Lesions Musculoskeletal: Present: No Fluid Collection, No Pain, Normal Range of Motion Gait: Present: Normal Gait Extremities: Present: No Clubbing, No Cyanosis, Normal Upper Extr. Pulses, Normal Lower Extr. Pulses, No Phlebitic Signs, Normal Cath Site, Capillary Refill (Normal). Absent: Edema Result/EKG - Labs CBC & BMP: 01/04/17 06:47 01/04/17 06:47 Lab Results: I have reviewed the past 24 hour labs Labs: Laboratory Results - last 24 hr 01/03/17 01/04/17 01/04/17 04:59 06:47 06:47 WBC 10.9 RBC 3.39 L D Hgb 10.0 L D Hct 29.7 L MCV 87.6 MCH 30 MCHC 33.7 RDW 15.0 Plt Count 148 MPV 10.2 Neut % (Auto) 65.0 Lymph % (Auto) 19.1 L [place] % (Auto) 8.7 Eos % (Auto) 5.3 Baso % (Auto) 0.7 Neut # (Auto) 7.1 Lymph # (Auto) 2.1 [place] # (Auto) 1.0 H Eos # (Auto) 0.6 Baso # (Auto) 0.1 Immature Gran % 1.2 Nucleated RBC % 0.0 Immature Gran # 0.13 Nucleated RBCs # 0.00 INR 1.4 PT Patient/Control Mix 15.1 Sodium Potassium Chloride Carbon Dioxide Anion Gap BUN Creatinine GFR Calculation BUN/Creatinine Ratio Glucose Calculated Osmolality Calcium Blood Type Cancelled Antibody Screen Cancelled Crossmatch See Detail Blood Bank Comment Cancelled 01/04/17 06:47 WBC RBC Hgb Hct MCV MCH MCHC RDW Plt Count MPV Neut % (Auto) Lymph % (Auto) [place] % (Auto) Eos % (Auto) Baso % (Auto) Neut # (Auto) Lymph # (Auto) [place] # (Auto) Eos # (Auto) Baso # (Auto) Immature Gran % Nucleated RBC % Immature Gran # Nucleated RBCs # INR PT Patient/Control Mix Sodium 142 Potassium 5.0 Chloride 108 H Carbon Dioxide 26 Anion Gap 13.0 BUN 36 H Creatinine 1.70 H GFR Calculation 45 BUN/Creatinine Ratio 21.00 H Glucose 96 Calculated Osmolality 290.1 Calcium 7.7 L Blood Type Antibody Screen Crossmatch Blood Bank Comment - EKG EKG results: interpreted by me, no acute changes (Atrially paced rhythm) EKG shows: sinus rhythm Kelsy Koroma Randall Scott, MD, personally performed the services described in this documentation, ascribed by Xochilt Werner RN in my presence, and it is both accurate and complete 633 .
[2017-01-04] MEDS ORDERED: MAGNESIUM CITRATE 300 ML BOTTLE PO ONE (18:00)
[2017-01-04] MEDS: WARFARIN 5 MG TABLET PO SCH (22:43)
[2017-01-04] MEDS: METOPROLOL SUCCINATE XL 25 MG TABLET PO SCH (22:43)
[2017-01-05] MEDS: SODIUM CHLORIDE 0.9% 1,000 ML IV SCH ×2 (05:51→15:55)
[2017-01-05 08:00] LABS: Calcium 7.6 MG/DL (8.5-10.1); Magnesium 2.6 MG/DL (1.8-2.4); Osmolality,Calculated 290.8 MOS/KG (273-304); Potassium 4.8 MMOL/L (3.5-5.1)
[2017-01-05 08:36] LABS: Basophils # 0.1 10*3/uL (0.0-0.2); Basophils % 0.8 % (0.0-0.8); Eosinophils # 0.6 10*3/uL (0.0-0.87); Eosinophils % 5.6 % (0.00-10.9); Hematocrit 32.4 VOL% (42.0-52.0); Hemoglobin 10.6 GM/DL (14.0-18.0); Immature Granulocytes % 0.6 %; Immature Granulocytes Absolute 0.06 #; Lymphocytes # 1.6 10*3/uL (1.4-4.0); Lymphocytes % 16.6 % (21.2-54.2); Mean Corpuscular HGB Conc 32.7 GM/DL (32-36); Mean Corpuscular Hemoglobin 29 PG (27-34); Mean Corpuscular Volume 87.3 FL (87-102); Mean Platelet Volume 10.2 FL (9.6-12.0); Monocytes # 0.9 10*3/uL (0.11-0.8); Monocytes % 8.6 % (1.7-12.7); NRBC # 0.02 10*3/uL; Neutrophils # 6.7 10*3/uL (1.4-7.4); Neutrophils % 67.8 % (38.7-73.9); Platelet Count 151 T/CUMM (130-400); Red Blood Count 3.71 MC/CUMM (3.8-5.5); Red Cell Distribution Width 15.1 % (9.3-17.3); White Blood Count 9.9 T/CUMM (4-12)
[2017-01-05 08:43] LABS: INR 1.4; PT Patient Result 15.2 SECS
--- NOTE | 2017-01-05 08:52 | Gastrointestinal Progress Note ---
Assessment and Plan (1) Melena Status: Acute Assessment and plan: 01/04-Melena stools overnight. No other complaints. Recheck H/H today. Plan and addendum to follow by Dr Glass. 01/03-Three day history of dark tarry stools w/o other associated symptoms, on Plavix/Coumdin/Aspirin therapy. Hgb 7.6 on admission now 7.9 following 2 units of PRBC. To receive 2 more units today. Plan for tentative EGD tomorrow to further evaluate if okay from cardiac standpoint. Plan and addendum to follow by Dr Glass. Current Visit: Yes Gastroenterology - PN: Subj Interval history: CC: GI bleed, melena Pt is seen sitting up in chair, awake and alert eating breakfast. He was for a small bowel camera today however this was cancelled due to pt having a pacemaker. He had some more melena stools on yesterday with the magnesium citrate but no bright red bleeding seen. Denies any abdominal pain, nausea or vomiting. He is tolerating his diet well. ROS: Denies SOB or chest pain Exam (Progress Note) - Constitutional Vitals: Period Temp Pulse Resp BP Sys/Bermudez Pulse Ox Last 24 Hr 97.5 F-98.7 F 59-80 16-21 101-146/55-076 95-100 - Other Additional findings: General appearance: normal weight, no acute distress - Head Head exam: Present: normal inspection, normocephalic - Eye Eye exam: Present: other (Lids and conjunctivae unremarkable). Absent: scleral icterus - ENT ENT exam: Present: normal exam, normal oropharynx - Neck Neck exam: Present: normal inspection - Respiratory Respiratory exam: Present: clear to auscultation bilaterally. Absent: rales, rhonchi, wheezes - Cardiovascular Cardiovascular exam: Present: regular rate and rhythm. Absent: diastolic murmur , JVD, systolic murmur - GI/Abdominal GI/Abdominal exam: Present: normal bowel sounds, soft. Absent: ascites, distended, mass, organomegaly, tenderness - Extremities Exam Extremities exam: Present: normal inspection, full ROM - Back Exam Back exam: Present: normal inspection - Neurological Exam Neurological exam: Present: alert, oriented X3 - Psychiatric Psychiatric exam: Present: normal affect, normal mood - Skin Skin exam: Present: normal color, warm, dry Results - Labs CBC & BMP: 01/05/17 08:04 01/05/17 06:16 Lab Results: I have reviewed the past 24 hour labs
[2017-01-05] MEDS: MAGNESIUM OXIDE 400 MG TABLET PO SCH (09:35)
[2017-01-05] MEDS: MULTIVITAMIN (CENTRUM) TABLET PO SCH (09:35)
[2017-01-05] MEDS: LISINOPRIL 5 MG TABLET PO SCH (09:35)
[2017-01-05] MEDS: PANTOPRAZOLE 40 MG TABLET PO SCH (09:35)
[2017-01-05] MEDS: PRAVASTATIN 20 MG TABLET PO SCH (09:35)
[2017-01-05] MEDS: FUROSEMIDE 20 MG TABLET PO SCH (09:35)
[2017-01-05] MEDS: FLECAINIDE 100 MG TABLET PO SCH ×2 (09:35→20:23)
[2017-01-05 10:05] LABS: Hematocrit 31.5 VOL% (42.0-52.0); Hemoglobin 10.3 GM/DL (14.0-18.0)
--- NOTE | 2017-01-05 13:59 | Hospitalist Progress Note ---
Assessment and Plan (1) Lower gastrointestinal hemorrhage Status: Acute Assessment and plan: patient is on Coumadin due to an aortic valve in place. EGD showed mildly obstructive distal esophageal stricture secondary to GERD-not dilated due to Plavix therapy #2 otherwise normal EGD Small bowel camera(Pillcam) was canceled today due to patient having a pacemaker. He had a colonoscopy within the last 6 months or so.H/H is stable GI is following, will transfuse as needed Current Visit: Yes (2) History of aortic valve replacement Status: Chronic Assessment and plan: Follow Cardiology's recommendations. Patient remains on anticoagulation Current Visit: No (3) HTN (hypertension) Status: Chronic Assessment and plan: stable Current Visit: No (4) Paroxysmal atrial fibrillation Status: Chronic Assessment and plan: rate is controlled Current Visit: Yes (5) Chronic renal insufficiency, stage III (moderate) Status: Chronic Assessment and plan: stable Current Visit: No Hospitalist: Subjective Interval history: Patient was seen sitting up in a chair. He states a history of dark stool but no obvious kaveh blood was seen. His H/H- stable.Small bowel camera(Pillcam) was canceled today due to patient having a pacemaker. Exam - Constitutional Vitals: Period Temp Pulse Resp BP Sys/Bermudez Pulse Ox Last 24 Hr 97.5 F-98.7 F 59-61 12-20 118-146/55-63 95-100 General appearance: no acute distress - Head Head exam: Present: normal inspection - Respiratory Respiratory exam: Present: clear to auscultation bilaterally - Cardiovascular Cardiovascular exam: Present: other (mechanical click) - GI/Abdominal GI/Abdominal exam: Present: normal bowel sounds - Extremities Exam Extremities exam: Present: normal inspection Results - Labs CBC & BMP: 01/05/17 09:51 01/05/17 06:16 Lab Results: I have reviewed the past 24 hour labs
--- NOTE | 2017-01-05 17:36 | Cardiology Progress Note ---
Alphonso Koroma Vanessa, RN, am scribing for, and in the presence of, Ajit Tierney MD 17:36. Assessment and Plan - Time spent with patient Time spent with patient: Greater than 30 minutes (1) History of coronary artery stent placement Status: Acute Assessment and plan: INITIAL CONSULT JANUARY 03, 2017: ASSESSMENT/PLAN: 1. 81-year-old WN with multiple medical problems including remote mechanical AVR in 1990, remote pacemaker placement, known CAD status post stenting of ostial OM 30 July 2016 with resolution of angina, now noted to have significant anemia with mild dizziness and melena for several days on presentation despite slightly subtherapeutic INR. 2. Remote history of TIA "over 5 years ago" 3. It is reasonable to hold aspirin and Plavix until endoscopy in the morning to assess the severity and location of his source for GI bleeding; he continued to have a bit of melena today. 4. Paroxysmal atrial fibrillation status post cardioversion July 2016, maintain normal sinus rhythm with first-degree A-V B and slight prolongation of QTC on flecainide 5. Aortic valve second sound is quite crisp suggesting that there is no thrombosis; physical exam is reasonably benign other than decreased breath sounds in the right base, and minimal lower extremity edema. 6. Check morning labs including INR EKG 7. He feels a bit better and is currently receiving his second unit of packed red blood cells this afternoon. 8. We will follow with you JANUARY 04, 2017 UPDATE: ASSESSMENT/PLAN: 1. Mr. Cuellar is doing better clinically but still having a little bit of melena status post upper endoscopy this morning which apparently showed stricture but no bleeding source 2. Subtherapeutic INR 1.4 despite getting 5 mg per evening; he reports his most recent prescription was for 7.5 on Monday and Monday with 5 mg other days. We will give an additional 4 mg today and then 5 g per night and nightly after that 3. Follow-up INR in the morning 4. Hold aspirin and Plavix given his upper GI bleed; his stent was placed nearly 5 months ago, so it would be reasonable hold this for some time until severity and location of GI bleeding can be established. 5. GI workup in progress 6. Aortic valve has a crisp sound today, and is doing fairly well clinically. 7. History of paroxysmal atrial flutter fibrillation; atrial paced rhythm most recently status post blood transfusion yesterday 8. We will continue to follow with you JANUARY 05, 2017 UPDATE: ASSESSMENT/PLAN: 1. Mr. Cuellar is asymptomatic and has had no bowel movements today (a bit of melena yesterday) with stable hematocrit and hemodynamically stable 2. INR is again subtherapeutic at 1.4 despite getting an extra 4 mg yesterday; will start 7.5 tonight alternating with 5 mg; he should be later changed to 7.5 Monday and and 5 mg the other day once his INR is near his target of 2.0 3. I would not give heparin infusion at this time as it is likely to cause significant GI bleeding; he has a crisp valve sound on examination today 4. History of paroxysmal atrial flutter/fibrillation 5. Aspirin and Plavix are still being held (stent placed nearly 5 months ago) Current Visit: Yes (2) Melena Status: Acute Current Visit: Yes (3) Acute blood loss anemia Status: Acute Current Visit: Yes (4) Chronic anticoagulation Status: Chronic Current Visit: Yes (5) Hx of mechanical aortic valve replacement Status: Chronic Current Visit: Yes (6) Paroxysmal atrial fibrillation Status: Chronic Current Visit: Yes (7) Coronary artery disease Status: Chronic Current Visit: Yes Qualifiers: Coronary Disease-Associated Artery/Lesion type: [place] artery [place] vs. transplanted heart: [place] heart Associated angina: without angina Qualified Code(s): I25.10 - Atherosclerotic heart disease of [place] coronary artery without angina pectoris (8) Dyslipidemia Status: Chronic Current Visit: No (9) HTN (hypertension) Status: Chronic Current Visit: No Cardiology - PN: Subj Interval history: PRIMARY ROLL TRUCKER: DR. 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 Bryant Seo for many years, and he has recently established care with Dr. Ara Xiong. Risk factors significant for: Known CAD, hypertension, dyslipidemia, and obesity. Past medical history includes TIA, paroxysmal atrial fibrillation , aortic valve replacement, diastolic CHF, chronic renal insufficiency, and permanent dual-chamber pacemaker, and anemia. Patient was seen at [facility] yesterday for routine PT/INR check. Blood work revealed a significantly decreased H/H to 8.3 and 25.8 with INR 1.7, and he admitted to melena since last Monday. Patient was admitted by hospital medicine for treatment of GI bleeding. Since hospital admission, he has been transfused with a total of 4 units PRBCs. Cardiology has been consulted for further evaluation as he is chronically anticoagulated s/p mechanical aortic valve, and he is currently on dual antiplatelet therapy after coronary stenting of ostium of 3rd obtuse marginal branch in July 2016. Echocardiogram during July 2016 admission revealed LV ejection fraction 55% and mild TR with a PA pressure [address]. [address] Glass on 01/04 revealed a mildly obstructive esophageal stricture secondary to GERD but was not dilated due to recent use of Plavix. Patient was to undergo small bowel PillCam study, but this was unable to be completed due to presence of pacemaker. December: Today, patient is sitting up in bedside chair. He is awake, alert, and without complaint. No chest pain, dyspnea, or other complaint. He continues to not experience any abdominal pain or discomfort. H&H remained stable and today is 10.3 and 31.5, and he has not required further transfusion. Despite extra Coumadin dose yesterday evening of 4 mg 1 in addition to routine Coumadin 5 mg , INR remains unchanged at 1.4 today. Admits to some continued melena yesterday afternoon, but has improved today. No BRBPR. Afebrile, vital signs have been stable. Telemetry reveals atrial pacing without disturbance. Exam (Progress Note) - Constitutional Vitals: Period Temp Pulse Resp BP Sys/Bermudez Pulse Ox Last 24 Hr 97.5 F-98.7 F 59-80 16-21 101-146/55-076 95-100 Exam: General: Present: Appears Well, No Apparent Distress HEENT: Present: Normocephaly, Mucus Membranes Moist. Absent: Pallor Neck: Present: Supple Neck, Midline Trachea, No JVD/HJR, No Masses, No Bruit, No Lymphadenopathy Cardiac: Present: Reg Rate and Rhythm, S1/S2, No Murmur, Other (pronounced mechanical valve click). Absent: Tachycardia, Bradycardia Lungs: Present: Normal Exam, Clear Ascult./Percussion, No Wheeze, Rales, Rhonchi Neuro: Present: Grossly Intact. Absent: Numbness, Weakness, Resting Tremor, Essential Tremor Abdomen: Present: Soft, Active Bowel Sounds, No Masses, No Pulsations/Bruits. Absent: Tender, Firm, Distended Skin: Present: Clear. Absent: Rash, Suspicious Lesions Musculoskeletal: Present: No Fluid Collection, No Pain, Normal Range of Motion Gait: Present: Normal Gait Extremities: Present: No Clubbing, No Cyanosis, Normal Upper Extr. Pulses, Normal Lower Extr. Pulses, No Phlebitic Signs, Normal Cath Site, Capillary Refill (Normal). Absent: Edema Result/EKG - Labs CBC & BMP: 01/05/17 09:51 01/05/17 06:16 Lab Results: I have reviewed the past 24 hour labs Labs: Laboratory Results - last 24 hr 01/05/17 01/05/17 01/05/17 06:16 08:04 08:04 WBC 9.9 RBC 3.71 L Hgb 10.6 L Hct 32.4 L MCV 87.3 MCH 29 MCHC 32.7 RDW 15.1 Plt Count 151 MPV 10.2 Neut % (Auto) 67.8 Lymph % (Auto) 16.6 L [place] % (Auto) 8.6 Eos % (Auto) 5.6 Baso % (Auto) 0.8 Neut # (Auto) 6.7 Lymph # (Auto) 1.6 [place] # (Auto) 0.9 H Eos # (Auto) 0.6 Baso # (Auto) 0.1 Immature Gran % 0.6 Nucleated RBC % 0.2 Immature Gran # 0.06 Nucleated RBCs # 0.02 INR 1.4 PT Patient/Control Mix 15.2 Sodium 144 Potassium 4.8 Chloride 111 H Carbon Dioxide 26 Anion Gap 11.8 BUN 30 H Creatinine 1.60 H GFR Calculation 49 BUN/Creatinine Ratio 18.00 Glucose 89 Calculated Osmolality 290.8 Calcium 7.6 L Magnesium 2.6 H 01/05/17 09:51 WBC RBC Hgb 10.3 L Hct 31.5 L MCV MCH MCHC RDW Plt Count MPV Neut % (Auto) Lymph % (Auto) [place] % (Auto) Eos % (Auto) Baso % (Auto) Neut # (Auto) Lymph # (Auto) [place] # (Auto) Eos # (Auto) Baso # (Auto) Immature Gran % Nucleated RBC % Immature Gran # Nucleated RBCs # INR PT Patient/Control Mix Sodium Potassium Chloride Carbon Dioxide Anion Gap BUN Creatinine GFR Calculation BUN/Creatinine Ratio Glucose Calculated Osmolality Calcium Magnesium - EKG EKG results: interpreted by me, no acute changes (Atrially paced rhythm; no ectopy or arrhythmia.) I, Ajit Tierney MD, personally performed the services described in this documentation, ascribed by Xochilt Werner RN in my presence, and it is both accurate and complete 736 .
[2017-01-05] MEDS ORDERED: WARFARIN 7.5 MG TABLET PO SCH (18:00)
[2017-01-05] MEDS: METOPROLOL SUCCINATE XL 25 MG TABLET PO SCH (20:23)
[2017-01-06] MEDS: SODIUM CHLORIDE 0.9% 1,000 ML IV SCH (07:16)
[2017-01-06 07:29] LABS: Basophils # 0.1 10*3/uL (0.0-0.2); Basophils % 0.6 % (0.0-0.8); Eosinophils # 0.5 10*3/uL (0.0-0.87); Eosinophils % 4.6 % (0.00-10.9); Hematocrit 32.3 VOL% (42.0-52.0); Hemoglobin 10.4 GM/DL (14.0-18.0); Immature Granulocytes % 0.5 %; Immature Granulocytes Absolute 0.05 #; Lymphocytes # 1.9 10*3/uL (1.4-4.0); Lymphocytes % 18.7 % (21.2-54.2); Mean Corpuscular HGB Conc 32.2 GM/DL (32-36); Mean Corpuscular Hemoglobin 29 PG (27-34); Mean Corpuscular Volume 90.2 FL (87-102); Mean Platelet Volume 9.5 FL (9.6-12.0); Monocytes # 0.8 10*3/uL (0.11-0.8); Monocytes % 8.3 % (1.7-12.7); Neutrophils # 6.7 10*3/uL (1.4-7.4); Neutrophils % 67.3 % (38.7-73.9); Platelet Count 138 T/CUMM (130-400); Red Blood Count 3.58 MC/CUMM (3.8-5.5); Red Cell Distribution Width 14.9 % (9.3-17.3); White Blood Count 9.9 T/CUMM (4-12)
[2017-01-06 07:40] LABS: INR 1.7; PT Patient Result 18.7 SECS
[2017-01-06 07:44] VITALS: BP 141/57
[2017-01-06 08:06] LABS: Magnesium 2.5 MG/DL (1.8-2.4); Osmolality,Calculated 284.3 MOS/KG (273-304); Potassium 4.7 MMOL/L (3.5-5.1)
[2017-01-06] MEDS: PRAVASTATIN 20 MG TABLET PO SCH (09:02)
[2017-01-06] MEDS: LISINOPRIL 5 MG TABLET PO SCH (09:02)
[2017-01-06] MEDS: MAGNESIUM OXIDE 400 MG TABLET PO SCH (09:02)
[2017-01-06] MEDS: FLECAINIDE 100 MG TABLET PO SCH (09:02)
[2017-01-06] MEDS: FUROSEMIDE 20 MG TABLET PO SCH (09:02)
[2017-01-06] MEDS: MULTIVITAMIN (CENTRUM) TABLET PO SCH (09:02)
[2017-01-06] MEDS: PANTOPRAZOLE 40 MG TABLET PO SCH (09:02)
--- NOTE | 2017-01-06 09:35 | Gastrointestinal Progress Note ---
Assessment and Plan (1) Melena Status: Acute Assessment and plan: 01/06-no further melena at present. Hemoglobin stable at 10.4. No reports of pain nausea vomiting. Okay to discharge from GI standpoint. Will need to follow-up with Dr. Celis on Monday for INR as well as CBC. Plan an addendum to followed by Dr. Glass. 01/05-Melena stools overnight. No other complaints. Recheck H/H today. Plan and addendum to follow by Dr Glass. 01/03-Three day history of dark tarry stools w/o other associated symptoms, on Plavix/Coumdin/Aspirin therapy. Hgb 7.6 on admission now 7.9 following 2 units of PRBC. To receive 2 more units today. Plan for tentative EGD tomorrow to further evaluate if okay from cardiac standpoint. Plan and addendum to follow by Dr Glass. Current Visit: Yes Gastroenterology - PN: Subj Interval history: CC: Melena and anemia Patient is seen awake and alert eating breakfast. He has no complaints of this morning. Denies any abdominal pain, nausea or vomiting. States he has not had a bowel movement since 2 days ago following the prep for the small bowel camera which was canceled. He denies any pain with eating. Hemoglobin is noted to be stable today at 10.4. Abdomen is soft, nontender. Patient is acceptable for discharge from GI standpoint today and is to follow-up on Monday for a recheck on his INR as well as a CBC with Dr. Celis. ROS: Denies shortness of breath or chest pain Exam (Progress Note) - Constitutional Vitals: Period Temp Pulse Resp BP Sys/Bermudez Pulse Ox Last 24 Hr 97.5 F-98.8 F 57-65 12-20 128-152/55-71 97-100 - Other Additional findings: General appearance: normal weight, no acute distress - Head Head exam: Present: normal inspection, normocephalic - Eye Eye exam: Present: other (Lids and conjunctivae unremarkable). Absent: scleral icterus - ENT ENT exam: Present: normal exam, normal oropharynx - Neck Neck exam: Present: normal inspection - Respiratory Respiratory exam: Present: clear to auscultation bilaterally. Absent: rales, rhonchi, wheezes - Cardiovascular Cardiovascular exam: Present: regular rate and rhythm. Absent: diastolic murmur , JVD, systolic murmur - GI/Abdominal GI/Abdominal exam: Present: normal bowel sounds, soft. Absent: ascites, distended, mass, organomegaly, tenderness - Extremities Exam Extremities exam: Present: normal inspection, full ROM - Back Exam Back exam: Present: normal inspection - Neurological Exam Neurological exam: Present: alert, oriented X3 - Psychiatric Psychiatric exam: Present: normal affect, normal mood - Skin Skin exam: Present: normal color, warm, dr Results - Labs CBC & BMP: 01/06/17 07:10 01/06/17 07:10 Lab Results: I have reviewed the past 24 hour labs
--- NOTE | 2017-01-06 09:55 | Cardiology Progress Note ---
Assessment and Plan (1) History of coronary artery stent placement Status: Acute Assessment and plan: INITIAL CONSULT JANUARY 03, 2017: ASSESSMENT/PLAN: 1. 81-year-old WN with multiple medical problems including remote mechanical AVR in 1990, remote pacemaker placement, known CAD status post stenting of ostial OM 30 July 2016 with resolution of angina, now noted to have significant anemia with mild dizziness and melena for several days on presentation despite slightly subtherapeutic INR. 2. Remote history of TIA "over 5 years ago" 3. It is reasonable to hold aspirin and Plavix until endoscopy in the morning to assess the severity and location of his source for GI bleeding; he continued to have a bit of melena today. 4. Paroxysmal atrial fibrillation status post cardioversion July 2016, maintain normal sinus rhythm with first-degree A-V B and slight prolongation of QTC on flecainide 5. Aortic valve second sound is quite crisp suggesting that there is no thrombosis; physical exam is reasonably benign other than decreased breath sounds in the right base, and minimal lower extremity edema. 6. Check morning labs including INR EKG 7. He feels a bit better and is currently receiving his second unit of packed red blood cells this afternoon. 8. We will follow with you JANUARY 04, 2017 UPDATE: ASSESSMENT/PLAN: 1. Mr. Cuellar is doing better clinically but still having a little bit of melena status post upper endoscopy this morning which apparently showed stricture but no bleeding source 2. Subtherapeutic INR 1.4 despite getting 5 mg per evening; he reports his most recent prescription was for 7.5 on Monday and Monday with 5 mg other days. We will give an additional 4 mg today and then 5 g per night and nightly after that 3. Follow-up INR in the morning 4. Hold aspirin and Plavix given his upper GI bleed; his stent was placed nearly 5 months ago, so it would be reasonable hold this for some time until severity and location of GI bleeding can be established. 5. GI workup in progress 6. Aortic valve has a crisp sound today, and is doing fairly well clinically. 7. History of paroxysmal atrial flutter fibrillation; atrial paced rhythm most recently status post blood transfusion yesterday 8. We will continue to follow with you JANUARY 05, 2017 UPDATE: ASSESSMENT/PLAN: 1. Mr. Cuellar is asymptomatic and has had no bowel movements today (a bit of melena yesterday) with stable hematocrit and hemodynamically stable 2. INR is again subtherapeutic at 1.4 despite getting an extra 4 mg yesterday; will start 7.5 tonight alternating with 5 mg; he should be later changed to 7.5 Monday and and 5 mg the other day once his INR is near his target of 2.0 3. I would not give heparin infusion at this time as it is likely to cause significant GI bleeding; he has a crisp valve sound on examination today 4. History of paroxysmal atrial flutter/fibrillation 5. Aspirin and Plavix are still being held (stent placed nearly 5 months ago) January 06 update: 1. Mr. Cuellar continues to do well clinically and has had no melena yesterday or today with stable hematocrit 2. Hemodynamic stable 3. INR is starting to rise at 1.7 today; recommend Coumadin 7.5 mg on Monday and , and 5 g of the days 4. Change INR check to Monday to allow an accurate reading on current regimen 5. Return to see Dr. Celis in 10-15 days with FLP CMP CBC and INR 6. Can be discharged from a cardiac standpoint 7. We will sign off; please call if needed prior to discharge Current Visit: Yes (2) Melena Status: Acute Current Visit: Yes (3) Acute blood loss anemia Status: Acute Current Visit: Yes (4) Chronic anticoagulation Status: Chronic Current Visit: Yes (5) Hx of mechanical aortic valve replacement Status: Chronic Current Visit: Yes (6) Paroxysmal atrial fibrillation Status: Chronic Current Visit: Yes (7) Coronary artery disease Status: Chronic Current Visit: Yes Qualifiers: Coronary Disease-Associated Artery/Lesion type: [place] artery [place] vs. transplanted heart: [place] heart Associated angina: without angina Qualified Code(s): I25.10 - Atherosclerotic heart disease of [place] coronary artery without angina pectoris (8) Dyslipidemia Status: Chronic Current Visit: No (9) HTN (hypertension) Status: Chronic Current Visit: No Cardiology - PN: Subj Interval history: Mr. Cuellar is feeling quite well and has not had a bowel movement here yesterday. He has had no melena. He is having no abdominal pain shortness of breath chest pain or dizziness. He feels fine. Is able to ambulate without difficulty. Exam (Progress Note) - Constitutional Vitals: Period Temp Pulse Resp BP Sys/Bermudez Pulse Ox Last 24 Hr 97.5 F-98.8 F 57-65 12-20 128-152/55-71 97-100 General appearance: normal weight, no acute distress - Head Head exam: Present: normal inspection, normocephalic, atraumatic - Neck Neck exam: Present: normal inspection - Respiratory Respiratory exam: Present: clear to auscultation bilaterally. Absent: stridor, wheezes - Cardiovascular Cardiovascular exam: Present: regular rate and rhythm, other ([place] mechanical S2) - GI/Abdominal GI/Abdominal exam: Present: soft. Absent: tenderness - Extremities Exam Extremities exam: Absent: edema - Neurological Exam Neurological exam: Present: alert, oriented X3 Result/EKG - Labs CBC & BMP: 01/06/17 07:10 01/06/17 07:10 Labs: Laboratory Results - last 24 hr 01/05/17 01/06/17 01/06/17 09:51 07:10 07:10 WBC 9.9 RBC 3.58 L Hgb 10.3 L 10.4 L Hct 31.5 L 32.3 L MCV 90.2 MCH 29 MCHC 32.2 RDW 14.9 Plt Count 138 MPV 9.5 L Neut % (Auto) 67.3 Lymph % (Auto) 18.7 L [place] % (Auto) 8.3 Eos % (Auto) 4.6 Baso % (Auto) 0.6 Neut # (Auto) 6.7 Lymph # (Auto) 1.9 [place] # (Auto) 0.8 Eos # (Auto) 0.5 Baso # (Auto) 0.1 Immature Gran % 0.5 Nucleated RBC % 0.0 Immature Gran # 0.05 Nucleated RBCs # 0.00 INR 1.7 PT Patient/Control Mix 18.7 D Sodium Potassium Chloride Carbon Dioxide Anion Gap BUN Creatinine GFR Calculation BUN/Creatinine Ratio Glucose Calculated Osmolality Calcium Magnesium 01/06/17 07:10 WBC RBC Hgb Hct MCV MCH MCHC RDW Plt Count MPV Neut % (Auto) Lymph % (Auto) [place] % (Auto) Eos % (Auto) Baso % (Auto) Neut # (Auto) Lymph # (Auto) [place] # (Auto) Eos # (Auto) Baso # (Auto) Immature Gran % Nucleated RBC % Immature Gran # Nucleated RBCs # INR PT Patient/Control Mix Sodium 141 Potassium 4.7 Chloride 107 Carbon Dioxide 28 Anion Gap 10.7 BUN 25 H Creatinine 1.60 H GFR Calculation 49 BUN/Creatinine Ratio 15.00 Glucose 99 Calculated Osmolality 284.3 Calcium 8.0 L Magnesium 2.5 H
--- NOTE | 2017-01-06 10:15 | Discharge Summary ---
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 he apparently had been having some bloody stools but no hemetemesis, nausea, vomiting. No fever, chills, rigor.He was admitted, transfused with 2units of packed cells. GI and Cardiology were consulted. Cardiology wanted him to continue on his anticoagulation but his aspirin and plavix were held due to his artificial aortic valve. GI did an EGD which showed a mildly obstructive distal esophageal stricture secondary to GERD-not dilated due to recent Plavix therapy, otherwise a normal EGD. Small bowel camera(Pillcam) was canceled due to patient having a pacemaker. He had a colonoscopy within the last 6 months. His stool improved, kaveh blood was no longer noticed. His H/H improved after transfusion to about 10.4/32.3 and has since been stable. His vitals remained stable and this morning he was ready to be discharged. - Time spent with patient Time with patient DS: Greater than 30 minutes (Time spent: 35mins) Diagnosis - Discharge Diagnosis (1) Lower gastrointestinal hemorrhage Status: Acute (2) History of aortic valve replacement Status: Chronic (3) HTN (hypertension) Status: Chronic (4) Paroxysmal atrial fibrillation Status: Chronic (5) Chronic renal insufficiency, stage III (moderate) Status: Chronic Discharge Plan - Discharge Data Disposition: Disch To Home/Self Care Discharge Diet: heart healthy Activity: resume usual activities as tolerated - Discharge Medications New Acetaminophen Tab [Tylenol Tab] 650 mg PO Q4H PRN #0 tablet PRN Reason: Fever, Headache, Mild Pain HYDROcodone/ACETAMIN 5-325 [[place] 5-325] 1 tablet PO Q4H PRN #20 tablet PRN Reason: Pain Mild (1-3) Warfarin [Coumadin] 7.5 mg PO QOTHER DAY@1800 #30 tablet Warfarin [Coumadin] 5 mg PO QOTHER DAY@1800 #30 tablet Continue Pravastatin [Pravachol] 20 mg PO DAILY Metoprolol Succinate Xl [Toprol Xl] 25 mg PO BEDTIME Multivitamin [Multivitamins] 1 each PO DAILY Flecainide Acetate 100 mg PO BID Lisinopril 5 mg PO DAILY Furosemide Tab [Lasix Tab] 20 mg PO DAILY Magnesium Oxide [Magnesium] 500 mg PO DAILY Pantoprazole Tab [Protonix Tab] 40 mg PO DAILY #30 tablet Discontinued Warfarin [Coumadin] 5 mg PO BEDTIME Aspirin [Ecotrin] 81 mg PO DAILY #30 tablet.dr HANDLEY Clopidogrel [Plavix] 75 mg PO DAILY #30 tablet - Follow Up or Referral - Forms/Instructions Additional Discharge Instructions: Follow with PCP in 1week. INR check on Monday the . Follow Cardiology, GI as scheduled Exam - Constitutional Vitals: Period Temp Pulse Resp BP Sys/Bermudez Pulse Ox Last 24 Hr 97.5 F-98.8 F 57-65 12-20 128-152/55-71 97-100 General appearance: no acute distress - Head Head exam: Present: normal inspection - Respiratory Respiratory exam: Present: clear to auscultation bilaterally - Cardiovascular Cardiovascular exam: Present: regular rate and rhythm - GI/Abdominal GI/Abdominal exam: Present: normal bowel sounds - Extremities Exam Extremities exam: Present: normal inspection - Neurological Exam Neurological exam: Present: alert, oriented X3 Discharge Results Labs on day of discharge: Labs from last 24 hours 01/06/17 01/06/17 01/06/17 07:10 07:10 07:10 WBC 9.9 RBC 3.58 L Hgb 10.4 L Hct 32.3 L MCV 90.2 MCH 29 MCHC 32.2 RDW 14.9 Plt Count 138 MPV 9.5 L Neut % (Auto) 67.3 Lymph % (Auto) 18.7 L [place] % (Auto) 8.3 Eos % (Auto) 4.6 Baso % (Auto) 0.6 Neut # (Auto) 6.7 Lymph # (Auto) 1.9 [place] # (Auto) 0.8 Eos # (Auto) 0.5 Baso # (Auto) 0.1 Immature Gran % 0.5 Nucleated RBC % 0.0 Immature Gran # 0.05 Nucleated RBCs # 0.00 INR 1.7 PT Patient/Control Mix 18.7 D Sodium 141 Potassium 4.7 Chloride 107 Carbon Dioxide 28 Anion Gap 10.7 BUN 25 H Creatinine 1.60 H GFR Calculation 49 BUN/Creatinine Ratio 15.00 Glucose 99 Calculated Osmolality 284.3 Calcium 8.0 L Magnesium 2.5 H 01/05/17 09:51 WBC RBC Hgb 10.3 L Hct 31.5 L MCV MCH MCHC RDW Plt Count MPV Neut % (Auto) Lymph % (Auto) [place] % (Auto) Eos % (Auto) Baso % (Auto) Neut # (Auto) Lymph # (Auto) [place] # (Auto) Eos # (Auto) Baso # (Auto) Immature Gran % Nucleated RBC % Immature Gran # Nucleated RBCs # INR PT Patient/Control Mix Sodium Potassium Chloride Carbon Dioxide Anion Gap BUN Creatinine GFR Calculation BUN/Creatinine Ratio Glucose Calculated Osmolality Calcium Magnesium DS: Provider Date of admission: 01/02/17 17:51 Primary care physician: Bryant Seo MD Attending physician on admission: Avel Lima MD Consults: 01/02/17 19:04 Consult to Physician [CONS] Routine Comment: Consulting Provider: Consult to Physician [CONS] Routine Comment: Consulting Provider: Ara Calero Person Notified: Niraj Date Notified: 01/03/17 Time Notified: 08:21 Consult to Physician [CONS] Routine Comment: Consulting Provider: Shiraz Glass Person Notified: Kathy Date Notified: 01/03/17 Time Notified: 08:22 Consult Notification Comment: 01/02/17 20:01 Consult to Pharmacy [CONS] Routine Reason for Pharmacy Consult: Adjust Meds Renal Funct Discharging clinician: Jennifer Rudd MD
[2017-01-06] MEDS ORDERED: WARFARIN 5 MG TABLET PO SCH (18:00)
== END 2017-01-06 11:20 | disposition home or self-care (01) | DRG 378 ==
LOC: N.ED 16:12 → N.EDINP 17:51 → SUATTDRO 17:51 → N.EDINP 18:41 → N.5E 19:20
PROVIDERS: ADMIT Internal Medicine; ATTEND Internal Medicine

== ENCOUNTER 2017-08-13 10:44 | Observation (INO) ==
[2017-08-13] MEDS ORDERED: ENOXAPARIN 100 MG/ML SYRINGE SUBCUT STA (11:35)
[2017-08-13] MEDS ORDERED: ASPIRIN 325 MG TABLET PO STA (11:35)
[2017-08-13] MEDS ORDERED: ONDANSETRON 4 MG/2 ML VIAL IV PRN (11:35)
[2017-08-13] MEDS ORDERED: NITROGLYCERIN 2% OINT 1 INCH/GM PACK TOP STA (11:35)
[2017-08-13] MEDS ORDERED: MORPHINE 2 MG/1 ML SYRINGE IV PRN (11:35)
[2017-08-13] MEDS ORDERED: NITROGLYCERIN SL 0.4 MG TABLET SL PRN (11:35)
[2017-08-13] MEDS ORDERED: ENOXAPARIN 100 MG/ML SYRINGE SUBCUT ONE (12:17)
[2017-08-13] MEDS ORDERED: NITROGLYCERIN 2% OINT 1 INCH/GM PACK TOP ONE (12:18)
[2017-08-13] MEDS ORDERED: MORPHINE 2 MG/1 ML SYRINGE ONE (12:18)
[2017-08-13] MEDS ORDERED: ASPIRIN 325 MG TABLET ONE (12:18)
[2017-08-13 12:26] LABS: Basophils # 0.1 10*3/uL (0.0-0.2); Basophils % 0.6 % (0.0-0.8); Eosinophils # 0.1 10*3/uL (0.0-0.87); Eosinophils % 1.1 % (0.00-10.9); Hemoglobin 14.9 GM/DL (14.0-18.0); Immature Granulocytes % 0.4 %; Immature Granulocytes Absolute 0.05 #; Lymphocytes # 2.1 10*3/uL (1.4-4.0); Lymphocytes % 16.8 % (21.2-54.2); Mean Corpuscular HGB Conc 33.9 GM/DL (32-36); Mean Corpuscular Hemoglobin 29 PG (27-34); Mean Corpuscular Volume 84.5 FL (87-102); Mean Platelet Volume 9.6 FL (9.6-12.0); Monocytes # 1.1 10*3/uL (0.11-0.8); Monocytes % 8.8 % (1.7-12.7); Neutrophils # 8.8 10*3/uL (1.4-7.4); Neutrophils % 72.3 % (38.7-73.9); Platelet Count 182 T/CUMM (130-400); Red Blood Count 5.21 MC/CUMM (3.8-5.5); Red Cell Distribution Width 15.2 % (9.3-17.3); White Blood Count 12.2 T/CUMM (4-12)
[2017-08-13 12:42] LABS: Partial Thromboplastin Time 36.7 SECS (0-40)
[2017-08-13 12:47] LABS: Albumin 3.7 G/DL (3.4-5.0); Bilirubin,Total 0.5 MG/DL (0.2-1.0); Calcium 9.1 MG/DL (8.5-10.1); INR 2.3; Osmolality,Calculated 286.4 MOS/KG (273-304); PT Patient Result 23.5 SECS; Potassium 4.9 MMOL/L (3.5-5.1); Total Protein 7.2 G/DL (6.4-8.3)
[2017-08-13 13:25] LABS: Apearance,Urine CLEAR (Clear); Bilirubin,Urine Negative (Negative); Blood, Urine Negative (Negative); Glucose,Urine (UA) Negative (Negative); Hyaline Casts,Urine 5 /LPF (0-3); Ketones,Urine Negative (Negative); Nitrite,Urine Negative (Negative); Protein,Urine Negative; RBC,Urine <1 /HPF (0-4); Urine Color Yellow (Yellow); Urine Specific Gravity 1.008 (1.001-1.035); Urine Urobilinogen < 2.0 EU/DL (0.2-1.0); WBC,Urine 1 /HPF (0-6)
[2017-08-13] MEDS ORDERED: MAGNESIUM SULF RIDER 4 GM in PREMIX 1 EACH IV PRN (16:06)
[2017-08-13] MEDS ORDERED: MAGNESIUM SULF RIDER 2 GM in PREMIX 1 EACH IV PRN (16:06)
[2017-08-13] MEDS ORDERED: AMIODARONE INJ 450 MG in DEXTROSE 5% 241 ML IV SCH (16:30)
[2017-08-13] MEDS: SODIUM CHLORIDE 0.9% 1,000 ML IV SCH (19:17)
[2017-08-13] MEDS: METOPROLOL SUCCINATE XL 25 MG TABLET PO SCH (21:33)
[2017-08-13] MEDS: FLUTICASONE 50 MCG NASAL SPRAY 16 GM BOTTLE BOTH NARES SCH (21:33)
[2017-08-13] MEDS: AMIODARONE 200 MG TABLET PO SCH (21:33)
[2017-08-14] MEDS: SODIUM CHLORIDE 0.9% 1,000 ML IV SCH ×2 (00:18→09:37)
[2017-08-14] MEDS: AMIODARONE INJ 450 MG in DEXTROSE 5% 241 ML IV SCH ×3 (02:29→15:28)
[2017-08-14] MEDS: FLUTICASONE 50 MCG NASAL SPRAY 16 GM BOTTLE BOTH NARES SCH (08:31)
[2017-08-14] MEDS: METOPROLOL SUCCINATE XL 25 MG TABLET PO SCH ×2 (08:31→11:30)
[2017-08-14] MEDS: AMIODARONE 200 MG TABLET PO SCH ×2 (08:31→11:31)
[2017-08-14] MEDS ORDERED: PROPOFOL 200 MG/20 ML VIAL IV ONE (09:15)
[2017-08-14] MEDS ORDERED: METOPROLOL SUCCINATE XL 25 MG TABLET PO SCH (10:30)
[2017-08-14 11:38] LABS: Basophils # 0.1 10*3/uL (0.0-0.2); Basophils % 0.6 % (0.0-0.8); Eosinophils # 0.2 10*3/uL (0.0-0.87); Eosinophils % 1.5 % (0.00-10.9); Hematocrit 41.6 VOL% (42.0-52.0); Hemoglobin 13.9 GM/DL (14.0-18.0); Immature Granulocytes % 0.5 %; Immature Granulocytes Absolute 0.05 #; Lymphocytes # 1.8 10*3/uL (1.4-4.0); Lymphocytes % 16.7 % (21.2-54.2); Mean Corpuscular HGB Conc 33.4 GM/DL (32-36); Mean Corpuscular Hemoglobin 29 PG (27-34); Mean Corpuscular Volume 85.4 FL (87-102); Mean Platelet Volume 10.1 FL (9.6-12.0); Monocytes # 0.8 10*3/uL (0.11-0.8); Monocytes % 7.5 % (1.7-12.7); Neutrophils % 73.2 % (38.7-73.9); Platelet Count 173 T/CUMM (130-400); Red Blood Count 4.87 MC/CUMM (3.8-5.5); Red Cell Distribution Width 15.3 % (9.3-17.3); White Blood Count 10.9 T/CUMM (4-12)
[2017-08-14 11:55] VITALS: BP 124/59
[2017-08-14 11:58] LABS: PT Patient Result 20.6 SECS
[2017-08-14 12:18] LABS: Calcium 8.1 MG/DL (8.5-10.1); Osmolality,Calculated 285.5 MOS/KG (273-304); Potassium 4.8 MMOL/L (3.5-5.1)
[2017-08-15] MEDS ORDERED: LISINOPRIL 5 MG TABLET PO SCH (09:00)
[2017-08-15] MEDS ORDERED: MULTIVITAMIN (CENTRUM) TABLET PO SCH (09:00)
[2017-08-15] MEDS ORDERED: WARFARIN 5 MG TABLET PO SCH (09:00)
[2017-08-15] MEDS ORDERED: FUROSEMIDE 20 MG TABLET PO SCH (09:00)
[2017-08-15] MEDS ORDERED: MAGNESIUM OXIDE 400 MG TABLET PO SCH (09:00)
[2017-08-15] MEDS ORDERED: PANTOPRAZOLE 40 MG TABLET PO SCH (09:00)
[2017-08-15] MEDS ORDERED: PRAVASTATIN 20 MG TABLET PO SCH (09:00)
[2017-08-21] MEDS ORDERED: WARFARIN 2.5 MG TABLET PO SCH (09:00)
== END 2017-08-14 14:30 | disposition home or self-care (01) ==
LOC: N.ED 10:44 → N.EDINP 10:44 → N.TELES 16:05
PROVIDERS: ADMIT Internal Medicine Cardiovascular Disease; ATTEND Internal Medicine Cardiovascular Disease

== ENCOUNTER 2017-09-05 18:37 | Inpatient (IN) ==
[2017-09-05] MEDS ORDERED: ONDANSETRON 4 MG/2 ML VIAL IV STA (18:47)
[2017-09-05 19:13] LABS: Basophils # 0.1 10*3/uL (0.0-0.2); Basophils % 0.8 % (0.0-0.8); Eosinophils # 0.3 10*3/uL (0.0-0.87); Eosinophils % 2.4 % (0.00-10.9); Hematocrit 43.9 VOL% (42.0-52.0); Hemoglobin 14.4 GM/DL (14.0-18.0); Immature Granulocytes % 0.5 %; Immature Granulocytes Absolute 0.06 #; Lymphocytes # 2.6 10*3/uL (1.4-4.0); Lymphocytes % 21.5 % (21.2-54.2); Mean Corpuscular HGB Conc 32.8 GM/DL (32-36); Mean Corpuscular Hemoglobin 29 PG (27-34); Mean Corpuscular Volume 87.6 FL (87-102); Mean Platelet Volume 10.1 FL (9.6-12.0); Monocytes % 8.3 % (1.7-12.7); Neutrophils # 8.1 10*3/uL (1.4-7.4); Neutrophils % 66.5 % (38.7-73.9); Platelet Count 206 T/CUMM (130-400); Red Blood Count 5.01 MC/CUMM (3.8-5.5); White Blood Count 12.1 T/CUMM (4-12)
[2017-09-05 19:23] LABS: INR 2.5; Partial Thromboplastin Time 39.7 SECS (0-40)
[2017-09-05 19:36] LABS: Alanine Aminotransferase 23 U/L (16-61); Albumin 4.2 G/DL (3.4-5.0); Alkaline Phosphatase 76 U/L (45-117); Aspartate Amino Transferase 31 U/L (0-37); Blood Urea Nitrogen 44 MG/DL (7-18); Calcium 9.3 MG/DL (8.5-10.1); Glucose 102 MG/DL (74-106); Osmolality,Calculated 287.5 MOS/KG (273-304); Sodium 139 MMOL/L (136-145); Total Protein 7.5 G/DL (6.4-8.3); Troponin I Only < 0.015 NG/ML (0.00-0.045)
[2017-09-05] MEDS ORDERED: ONDANSETRON 4 MG/2 ML VIAL ONE (19:37)
[2017-09-05 20:37] LABS: Apearance,Urine Slightly Hazy (Clear); Bilirubin,Urine Negative (Negative); Blood, Urine Negative (Negative); Glucose,Urine (UA) Negative (Negative); Hyaline Casts,Urine 4 /LPF (0-3); Ketones,Urine Negative (Negative); Mucus,Urine Occasional /LPF (Occasional); Nitrite,Urine Negative (Negative); Protein,Urine Negative; RBC,Urine <1 /HPF (0-4); Urine Color Yellow (Yellow); Urine Specific Gravity 1.018 (1.001-1.035); Urine Urobilinogen < 2.0 EU/DL (0.2-1.0); WBC,Urine 1 /HPF (0-6)
[2017-09-05] MEDS ORDERED: NITROGLYCERIN SL 0.4 MG TABLET SL PRN (23:27)
[2017-09-05] MEDS ORDERED: ONDANSETRON 4 MG/2 ML VIAL IV PRN (23:27)
[2017-09-05] MEDS ORDERED: WARFARIN 2.5 MG TABLET PO SCH (23:27)
[2017-09-05] MEDS ORDERED: MORPHINE 10 MG/1 ML VIAL IV PRN (23:27)
[2017-09-06] MEDS: METOPROLOL SUCCINATE XL 25 MG TABLET PO SCH ×2 (00:15→20:50)
[2017-09-06] MEDS: DOCUSATE SODIUM 100 MG CAPSULE PO SCH ×3 (00:16→20:50)
[2017-09-06] MEDS: SODIUM CHLORIDE 0.9% 1,000 ML IV SCH (00:16)
[2017-09-06] MEDS ORDERED: ACETAMINOPHEN 325 MG TABLET ONE (00:27)
[2017-09-06] MEDS: ACETAMINOPHEN 325 MG TABLET PO PRN ×3 (00:36→13:29)
[2017-09-06 01:58] LABS: Barbiturates Screen,Urine Negative (Negative); Benzodiazepines Screen,Urine Negative (Negative); Cannabinoid Screen,Urine Negative (Negative); Opiate Screen,Urine Negative (Negative); Phencyclidine Screen,Urine Negative (Negative)
[2017-09-06 06:59] LABS: Risk Ratio 4.97; VLDL CHOLESTEROL 44.2 MG/DL
[2017-09-06] MEDS: PRAVASTATIN 20 MG TABLET PO SCH (08:37)
[2017-09-06] MEDS: AMIODARONE 200 MG TABLET PO SCH (08:37)
[2017-09-06] MEDS: ASPIRIN EC 81 MG TABLET PO SCH (08:38)
[2017-09-06] MEDS: PANTOPRAZOLE 40 MG TABLET PO SCH (08:38)
[2017-09-06] MEDS: FUROSEMIDE 20 MG TABLET PO SCH (08:38)
[2017-09-06] MEDS: MULTIVITAMIN (CENTRUM) TABLET PO SCH (08:39)
[2017-09-06] MEDS: MAGNESIUM OXIDE 400 MG TABLET PO SCH (08:39)
[2017-09-06] MEDS: LISINOPRIL 10 MG TABLET PO SCH (08:39)
[2017-09-06] MEDS ORDERED: LORazepam 2 MG/1 ML VIAL IV ONE ×2 (08:57→13:20)
[2017-09-06] MEDS ORDERED: POTASSIUM CHLORIDE 20 MEQ TABLET PO SCH (10:00)
[2017-09-06] MEDS ORDERED: WARFARIN 5 MG TABLET PO SCH (20:42)
[2017-09-07] MEDS: SODIUM CHLORIDE 0.9% 1,000 ML IV SCH (02:16)
[2017-09-07 06:09] LABS: INR 2.5
[2017-09-07 06:18] LABS: PT Patient Result 25.6 SECS
[2017-09-07 06:31] LABS: Calcium 8.3 MG/DL (8.5-10.1); Magnesium 2.3 MG/DL (1.8-2.4); Osmolality,Calculated 287.3 MOS/KG (273-304); Potassium 4.5 MMOL/L (3.5-5.1)
[2017-09-07] MEDS: MAGNESIUM OXIDE 400 MG TABLET PO SCH (08:58)
[2017-09-07] MEDS: FUROSEMIDE 20 MG TABLET PO SCH (08:58)
[2017-09-07] MEDS: ASPIRIN EC 81 MG TABLET PO SCH (08:58)
[2017-09-07] MEDS: PRAVASTATIN 20 MG TABLET PO SCH (08:59)
[2017-09-07] MEDS: AMIODARONE 200 MG TABLET PO SCH (08:59)
[2017-09-07] MEDS: DOCUSATE SODIUM 100 MG CAPSULE PO SCH (08:59)
[2017-09-07] MEDS: PANTOPRAZOLE 40 MG TABLET PO SCH (09:00)
[2017-09-07] MEDS: LISINOPRIL 10 MG TABLET PO SCH (09:00)
[2017-09-07] MEDS: MULTIVITAMIN (CENTRUM) TABLET PO SCH (09:00)
[2017-09-07] MEDS ORDERED: ALUMINUM/MAGNES/SIMETH MAX STR 30 ML UDCUP PO ONE (10:50)
[2017-09-07] MEDS: ACETAMINOPHEN 325 MG TABLET PO PRN (10:55)
[2017-09-07 15:52] VITALS: BP 130/67
== END 2017-09-07 15:53 | disposition home or self-care (01) | DRG 69 ==
LOC: N.ED 18:37 → SUATTDRO 20:28 → SUPCPDRO 20:28 → N.EDINP 20:28 → N.CC 23:02 → N.TELEN 09-07 05:55
PROVIDERS: ADMIT Internal Medicine; ATTEND Internal Medicine Cardiovascular Disease

== ENCOUNTER 2018-02-15 15:10 | Observation (INO) ==
[2018-02-15] MEDS ORDERED: ACETAMINOPHEN 325 MG TABLET PO PRN (15:34)
[2018-02-15] MEDS ORDERED: ONDANSETRON 4 MG/2 ML VIAL IV PRN (15:34)
[2018-02-15] MEDS ORDERED: ENOXAPARIN 30 MG/0.3 ML SYRINGE SUBCUT ONE (16:00)
[2018-02-15] MEDS: PANTOPRAZOLE 40 MG TABLET PO SCH (17:33)
[2018-02-15] MEDS: SODIUM CHLORIDE 0.9% 1,000 ML IV SCH ×2 (18:08→23:15)
[2018-02-15 18:24] LABS: Basophils # 0.1 10*3/uL (0.0-0.2); Basophils % 0.7 % (0.0-0.8); Eosinophils # 0.3 10*3/uL (0.0-0.87); Eosinophils % 2.9 % (0.00-10.9); Hematocrit 39.5 VOL% (42.0-52.0); Hemoglobin 13.4 GM/DL (14.0-18.0); Immature Granulocytes % 0.7 %; Immature Granulocytes Absolute 0.08 #; Lymphocytes # 2.5 10*3/uL (1.4-4.0); Lymphocytes % 22.2 % (21.2-54.2); Mean Corpuscular HGB Conc 33.9 GM/DL (32-36); Mean Corpuscular Hemoglobin 30 PG (27-34); Mean Corpuscular Volume 87.6 FL (87-102); Mean Platelet Volume 10.4 FL (9.6-12.0); Neutrophils # 7.4 10*3/uL (1.4-7.4); Neutrophils % 64.5 % (38.7-73.9); Platelet Count 182 T/CUMM (130-400); Red Blood Count 4.51 MC/CUMM (3.8-5.5); Red Cell Distribution Width 14.6 % (9.3-17.3); White Blood Count 11.4 T/CUMM (4-12)
[2018-02-15 18:56] LABS: Albumin 3.7 G/DL (3.4-5.0); Bilirubin,Total 0.6 MG/DL (0.2-1.0); Calcium 8.9 MG/DL (8.5-10.1); Osmolality,Calculated 281.7 MOS/KG (273-304); Potassium 4.7 MMOL/L (3.5-5.1); Total Protein 7.6 G/DL (6.4-8.3)
[2018-02-15 18:59] LABS: Troponin I Only < 0.015 NG/ML (0.00-0.045)
[2018-02-15 21:18] LABS: INR 2.5
[2018-02-15 21:22] LABS: PT Patient Result 25.3 SECS
[2018-02-15] MEDS: DOCUSATE SODIUM 100 MG CAPSULE PO SCH (21:54)
[2018-02-15] MEDS ORDERED: ZALEPLON 5 MG CAPSULE PO PRN (22:38)
[2018-02-15 23:36] LABS: Apearance,Urine CLEAR (Clear); Bilirubin,Urine Negative (Negative); Blood, Urine Negative (Negative); Glucose,Urine (UA) Negative (Negative); Ketones,Urine Negative (Negative); Nitrite,Urine Negative (Negative); Protein,Urine Negative; RBC,Urine <1 /HPF (0-4); Urine Color Yellow (Yellow); Urine Specific Gravity 1.014 (1.001-1.035); Urine Urobilinogen < 2.0 EU/DL (0.2-1.0)
[2018-02-16 05:54] LABS: Risk Ratio 4.03; VLDL CHOLESTEROL 61.6 MG/DL
[2018-02-16] MEDS: SODIUM CHLORIDE 0.9% 1,000 ML IV SCH ×2 (05:55→12:51)
[2018-02-16] MEDS ORDERED: FUROSEMIDE 20 MG TABLET PO SCH (09:00)
[2018-02-16] MEDS ORDERED: MULTIVITAMIN (CENTRUM) TABLET PO SCH (09:00)
[2018-02-16] MEDS ORDERED: LISINOPRIL 10 MG TABLET PO SCH (09:00)
[2018-02-16] MEDS ORDERED: ASPIRIN EC 81 MG TABLET PO SCH (09:00)
[2018-02-16] MEDS ORDERED: AMIODARONE 200 MG TABLET PO SCH (09:00)
[2018-02-16] MEDS ORDERED: PRAVASTATIN 20 MG TABLET PO SCH (09:00)
[2018-02-16] MEDS ORDERED: MAGNESIUM OXIDE 400 MG TABLET PO SCH (09:00)
[2018-02-16] MEDS: DOCUSATE SODIUM 100 MG CAPSULE PO SCH (10:23)
[2018-02-16] MEDS: PANTOPRAZOLE 40 MG TABLET PO SCH (10:24)
[2018-02-16 17:28] VITALS: BP 120/57
[2018-02-16] MEDS ORDERED: WARFARIN 5 MG TABLET PO SCH (18:00)
[2018-02-16] MEDS ORDERED: METOPROLOL SUCCINATE XL 25 MG TABLET PO SCH (21:00)
[2018-02-17] MEDS ORDERED: WARFARIN 2.5 MG TABLET PO SCH (18:00)
== END 2018-02-16 19:03 | disposition home or self-care (01) ==
LOC: N.ADMINP 15:38 → INTOOBSV 15:38 → N.2W 16:49 → N.TELES 18:42
PROVIDERS: ADMIT Family Medicine; ATTEND Family Medicine

== ENCOUNTER 2021-11-05 23:52 | Inpatient (IN) ==
[2021-11-06] MEDS ORDERED: HYDROmorphone 2 MG/1 ML VIAL IV STA (00:46)
[2021-11-06] MEDS ORDERED: SODIUM CHLORIDE 0.9% 1,000 ML IV STA (00:46)
[2021-11-06] MEDS ORDERED: ONDANSETRON 4 MG/2 ML VIAL IV STA (00:46)
[2021-11-06 00:53] LABS: Basophils # 0.1 10*3/uL (0.0-0.2); Basophils % 0.9 % (0.0-0.8); Eosinophils # 0.3 10*3/uL (0.0-0.87); Eosinophils % 2.2 % (0.00-10.9); Hematocrit 40.8 VOL% (42.0-52.0); Immature Granulocytes % 1.6 %; Immature Granulocytes Absolute 0.18 #; Lymphocytes % 17.2 % (21.2-54.2); Mean Corpuscular HGB Conc 31.9 GM/DL (32-36); Mean Corpuscular Volume 87.9 FL (87-102); Mean Platelet Volume 9.1 FL (9.6-12.0); Monocytes % 8.4 % (1.7-12.7); Neutrophils % 69.7 % (38.7-73.9); Platelet Count 213 T/CUMM (130-400); Red Blood Count 4.64 MC/CUMM (3.8-5.5); Red Cell Distribution Width 15.6 % (9.3-17.3); White Blood Count 11.6 T/CUMM (4-12)
[2021-11-06 01:11] LABS: INR 2.4; PT Patient Result 25.6 SECS (10.5-12.0); Partial Thromboplastin Time 34.5 SECS (23.8-32.1)
[2021-11-06 01:21] LABS: Albumin 3.3 G/DL (3.4-5.0); Bilirubin,Total 0.5 MG/DL (0.20-1.00); Calcium 9.1 MG/DL (8.5-10.1); Osmolality,Calculated 286.2 MOS/KG (273-304); Potassium 4.3 MMOL/L (3.5-5.1); Total Protein 7.4 G/DL (6.4-8.2)
[2021-11-06] MEDS ORDERED: ACETAMINOPHEN 325 MG TABLET PO PRN (01:57)
[2021-11-06] MEDS: DEXTROSE 5% NACL 0.45% 1,000 ML IV SCH ×3 (04:12→17:14)
[2021-11-06] MEDS: HYDROmorphone 2 MG/1 ML VIAL IV PRN ×3 (04:13→14:54)
[2021-11-06] MEDS: ONDANSETRON 4 MG/2 ML VIAL IV PRN ×2 (04:17→08:29)
[2021-11-06] MEDS: PANTOPRAZOLE 40 MG TABLET PO SCH (08:30)
[2021-11-06] MEDS ORDERED: hydrALAZINE 20 MG/1 ML VIAL IV PRN (09:55)
[2021-11-06] MEDS: METOPROLOL TARTRATE 5 MG/5 ML VIAL IV SCH ×3 (11:49→23:17)
[2021-11-06] MEDS ORDERED: HYDROmorphone 2 MG/1 ML VIAL IV PRN (17:50)
[2021-11-07] MEDS: DEXTROSE 5% NACL 0.45% 1,000 ML IV SCH ×4 (03:09→23:22)
[2021-11-07] MEDS: METOPROLOL TARTRATE 5 MG/5 ML VIAL IV SCH ×3 (05:47→18:35)
[2021-11-07 06:02] LABS: PT Patient Result 30.9 SECS (10.5-12.0)
[2021-11-07] MEDS: ONDANSETRON 4 MG/2 ML VIAL IV PRN ×2 (11:14→16:28)
[2021-11-07] MEDS: HYDROmorphone 2 MG/1 ML VIAL IV PRN ×3 (11:14→21:17)
[2021-11-07] MEDS: PANTOPRAZOLE 40 MG TABLET PO SCH (16:05)
[2021-11-07] MEDS: PANTOPRAZOLE 40 MG VIAL IV SCH (16:29)
[2021-11-08] MEDS: ONDANSETRON 4 MG/2 ML VIAL IV PRN ×4 (01:35→21:20)
[2021-11-08] MEDS: HYDROmorphone 2 MG/1 ML VIAL IV PRN ×3 (02:00→21:20)
[2021-11-08] MEDS: DEXTROSE 5% NACL 0.45% 1,000 ML IV SCH ×4 (02:02→21:31)
[2021-11-08] MEDS: METOPROLOL TARTRATE 5 MG/5 ML VIAL IV SCH ×3 (06:00→13:02)
[2021-11-08] MEDS: PANTOPRAZOLE 40 MG VIAL IV SCH (08:12)
[2021-11-08] MEDS ORDERED: methylPREDNISolone SOD SUC 40 MG/1 ML VIAL IV ONE (14:00)
[2021-11-08] MEDS ORDERED: GLUCAGON 1 MG VIAL IM PRN (19:55)
[2021-11-08] MEDS ORDERED: DEXTROSE 10% 250 ML BAG IV PRN (20:01)
[2021-11-08] MEDS ORDERED: INSULIN REGULAR 100 UNIT/ML SUBCUT SCH (21:00)
[2021-11-08] MEDS: SODIUM CHLORIDE 0.9% 1,000 ML IV SCH (21:20)
[2021-11-08] MEDS: ZALEPLON 5 MG CAPSULE PO SCH (21:20)
[2021-11-09 07:19] LABS: Basophils % 0.3 % (0.0-0.8); Hematocrit 29.2 VOL% (42.0-52.0); Immature Granulocytes % 0.9 %; Lymphocytes % 8.9 % (21.2-54.2); Mean Corpuscular HGB Conc 32.9 GM/DL (32-36); Mean Corpuscular Volume 86.1 FL (87-102); Mean Platelet Volume 10.2 FL (9.6-12.0); Monocytes % 4.1 % (1.7-12.7); Neutrophils % 85.8 % (38.7-73.9); Red Cell Distribution Width 15.3 % (9.3-17.3); White Blood Count 10.7 T/CUMM (4-12)
[2021-11-09 07:22] LABS: Hemoglobin 9.6 GM/DL (14.0-18.0); INR 1.8; PT Patient Result 18.8 SECS (10.5-12.0); Partial Thromboplastin Time 40.5 SECS (23.8-32.1); Platelet Count 168 T/CUMM (130-400); Red Blood Count 3.39 MC/CUMM (3.8-5.5)
[2021-11-09 07:35] LABS: Albumin 2.2 G/DL (3.4-5.0); Bilirubin,Total 0.9 MG/DL (0.20-1.00); Osmolality,Calculated 283.8 MOS/KG (273-304); Potassium 4.5 MMOL/L (3.5-5.1); Total Protein 5.8 G/DL (6.4-8.2)
[2021-11-09] MEDS ORDERED: MAGNESIUM SULF RIDER 4 GM/100 ML PREMIX IV PRN (08:12)
[2021-11-09] MEDS ORDERED: MAGNESIUM SULF RIDER 2 GM/50 ML PREMIX IV PRN (08:12)
[2021-11-09] MEDS: POLYETHYLENE GLYCOL POWDER 17 GM PACK PO SCH (08:43)
[2021-11-09] MEDS: FUROSEMIDE 20 MG TABLET PO SCH (08:43)
[2021-11-09] MEDS: lisinopriL 10 MG TABLET PO SCH (08:43)
[2021-11-09] MEDS: PANTOPRAZOLE 40 MG TABLET PO SCH (08:44)
[2021-11-09] MEDS: ASPIRIN EC 81 MG TABLET PO SCH (08:44)
[2021-11-09] MEDS ORDERED: METOPROLOL SUCCINATE XL 100 MG TABLET PO SCH (09:00)
[2021-11-09] MEDS: ENOXAPARIN 80 MG/0.8 ML SYRINGE SUBCUT SCH (10:58)
[2021-11-09] MEDS: BISACODYL 10 MG SUPP RECTAL SCH (10:58)
[2021-11-09] MEDS: INSULIN REGULAR 100 UNIT/ML SUBCUT SCH ×2 (12:42→18:45)
[2021-11-09] MEDS: WARFARIN 2.5 MG TABLET PO SCH (17:17)
[2021-11-09] MEDS: ZALEPLON 5 MG CAPSULE PO SCH (21:00)
[2021-11-09] MEDS: METOPROLOL SUCCINATE XL 100 MG TABLET PO SCH (21:00)
[2021-11-09] MEDS: SODIUM CHLORIDE 0.9% 1,000 ML IV SCH (21:46)
[2021-11-10] MEDS: INSULIN REGULAR 100 UNIT/ML SUBCUT SCH ×4 (01:21→17:04)
[2021-11-10] MEDS: HYDROmorphone 2 MG/1 ML VIAL IV PRN (02:00)
[2021-11-10] MEDS: SODIUM CHLORIDE 0.9% 1,000 ML IV SCH ×2 (02:00→10:25)
[2021-11-10 06:22] LABS: Basophils % 0.1 % (0.0-0.8); Eosinophils # 0.1 10*3/uL (0.0-0.87); Eosinophils % 0.4 % (0.00-10.9); Hematocrit 28.3 VOL% (42.0-52.0); Hemoglobin 9.1 GM/DL (14.0-18.0); Immature Granulocytes % 0.9 %; Immature Granulocytes Absolute 0.13 #; Lymphocytes # 1.4 10*3/uL (1.4-4.0); Lymphocytes % 10.2 % (21.2-54.2); Mean Corpuscular HGB Conc 32.2 GM/DL (32-36); Mean Corpuscular Volume 89.3 FL (87-102); Mean Platelet Volume 10.2 FL (9.6-12.0); Monocytes % 7.9 % (1.7-12.7); Neutrophils % 80.5 % (38.7-73.9); Platelet Count 194 T/CUMM (130-400); Red Blood Count 3.17 MC/CUMM (3.8-5.5); Red Cell Distribution Width 15.4 % (9.3-17.3)
[2021-11-10 06:33] LABS: Osmolality,Calculated 292.1 MOS/KG (273-304); Potassium 4.4 MMOL/L (3.5-5.1)
[2021-11-10 08:12] LABS: INR 1.5; PT Patient Result 16.2 SECS (10.5-12.0)
[2021-11-10] MEDS: PANTOPRAZOLE 40 MG TABLET PO SCH (09:51)
[2021-11-10] MEDS: BISACODYL 10 MG SUPP RECTAL SCH (09:51)
[2021-11-10] MEDS: ASPIRIN EC 81 MG TABLET PO SCH (09:51)
[2021-11-10] MEDS: lisinopriL 10 MG TABLET PO SCH (09:51)
[2021-11-10] MEDS: POLYETHYLENE GLYCOL POWDER 17 GM PACK PO SCH (09:51)
[2021-11-10] MEDS: FUROSEMIDE 20 MG TABLET PO SCH (09:51)
[2021-11-10] MEDS: ENOXAPARIN 80 MG/0.8 ML SYRINGE SUBCUT SCH (10:25)
[2021-11-10] MEDS: sitaGLIPtin 25 MG TABLET PO SCH (13:24)
[2021-11-10] MEDS: WARFARIN 2.5 MG TABLET PO SCH (17:41)
[2021-11-10] MEDS: METOPROLOL SUCCINATE XL 100 MG TABLET PO SCH (22:44)
[2021-11-10] MEDS: ZALEPLON 5 MG CAPSULE PO SCH (22:45)
[2021-11-11] MEDS: INSULIN REGULAR 100 UNIT/ML SUBCUT SCH (03:27)
[2021-11-11 06:41] LABS: Basophils % 0.4 % (0.0-0.8); Eosinophils # 0.2 10*3/uL (0.0-0.87); Eosinophils % 1.7 % (0.00-10.9); Hematocrit 29.5 VOL% (42.0-52.0); Hemoglobin 9.4 GM/DL (14.0-18.0); Immature Granulocytes % 1.2 %; Immature Granulocytes Absolute 0.13 #; Lymphocytes % 17.4 % (21.2-54.2); Mean Corpuscular HGB Conc 31.9 GM/DL (32-36); Mean Corpuscular Volume 90.2 FL (87-102); Mean Platelet Volume 10.3 FL (9.6-12.0); Monocytes % 9.4 % (1.7-12.7); Neutrophils % 69.9 % (38.7-73.9); Platelet Count 212 T/CUMM (130-400); Red Blood Count 3.27 MC/CUMM (3.8-5.5); Red Cell Distribution Width 15.5 % (9.3-17.3); White Blood Count 11.3 T/CUMM (4-12)
[2021-11-11 07:21] LABS: Albumin 2.2 G/DL (3.4-5.0); Bilirubin,Total 0.5 MG/DL (0.20-1.00); Calcium 7.9 MG/DL (8.5-10.1); Osmolality,Calculated 291.1 MOS/KG (273-304); Potassium 4.3 MMOL/L (3.5-5.1); Total Protein 5.8 G/DL (6.4-8.2)
[2021-11-11 08:42] VITALS: BP 129/56
[2021-11-11] MEDS: PANTOPRAZOLE 40 MG TABLET PO SCH (09:37)
[2021-11-11] MEDS: FUROSEMIDE 20 MG TABLET PO SCH (09:37)
[2021-11-11] MEDS: ENOXAPARIN 80 MG/0.8 ML SYRINGE SUBCUT SCH (09:37)
[2021-11-11] MEDS: ASPIRIN EC 81 MG TABLET PO SCH (09:37)
[2021-11-11] MEDS: lisinopriL 10 MG TABLET PO SCH (09:37)
[2021-11-11] MEDS: sitaGLIPtin 25 MG TABLET PO SCH (09:37)
[2021-11-11] MEDS: POLYETHYLENE GLYCOL POWDER 17 GM PACK PO SCH (09:41)
[2021-11-11] MEDS: BISACODYL 10 MG SUPP RECTAL SCH (12:09)
[2021-11-14] MEDS ORDERED: WARFARIN 5 MG TABLET PO SCH (18:00)
== END 2021-11-11 11:50 | disposition home or self-care (01) | DRG 389 ==
LOC: EDUNIT# → N.ED 23:52 → N.EDINP 11-06 02:24 → N.3E 11-06 03:02
PROVIDERS: ADMIT Family Medicine; ATTEND Family Medicine